=== PATIENT | male | born 1950 | race Caucasian/White ===

== ENCOUNTER → 2021-07-04 13:57 | Outpatient (CLI) | payer MEDICARE, SELFPAY | PROVIDERS: PCP Family Medicine; Visit Provider Family Medicine | DX: I10 Essential (primary) hypertension (principal) ==

== ENCOUNTER → 2022-07-18 15:36 | Outpatient (CLI) | payer MEDICARE, SELFPAY ==
--- NOTE | 2022-07-18 | CA_ITS ---
FINAL REPORT TECHNIQUE: Color Doppler, duplex Doppler and compression sonography of the right lower extremity venous system was performed. CLINICAL HISTORY: HTN, HLD, DM, redness and pain x couple of days worse this morning. FINDINGS: There is no evidence of deep venous thrombosis from the level of the groin to the calf. The veins are patent and compressible. IMPRESSION: No evidence of deep venous thrombosis right lower extremity. Reviewed, Interpreted and Dictated by Moses Garcia III, MD Transcribed by Tangela Finn Authenticated and [facility]
== END ==
PROVIDERS: PCP Family Medicine; Visit Provider Family Medicine
DX: M79.604 Pain in right leg (principal)
CPT/HCPCS: 93971

== ENCOUNTER 2024-04-08 10:59 | Outpatient (CLI) | payer MEDICARE, SELFPAY ==
[2024-04-08 11:22] LABS: Basophils % 0.5 % (0.1-2.0); Eosinophils # 0.2 K/mm3 (0.0-0.4); Eosinophils % 1.9 % (0.1-12.0); Hematocrit 40.6 % (42.0-52.0); Hemoglobin 13.4 g/dL (14.1-18.0); Lymphocytes % 11.3 % (10-50); Mean Corpuscular HGB Conc 33.1 g/dL (31.8-35.4); Mean Corpuscular Hemoglobin 29.6 pg (27.0-31.2); Mean Corpuscular Volume 89.4 fl (80-94); Mean Platelet Volume 6.8 fl (7.4-10.4); Monocytes # 0.6 K/mm3 (0.1-1.0); Monocytes % 6.7 % (1.7-9.3); Neutrophils # 6.7 K/mm3 (1.8-7.8); Neutrophils % 79.7 % (37.0-80.0); Platelet Count 206 K/mm3 (142-424); Red Blood Count 4.54 M/mm3 (4.60-6.20); Red Cell Distribution Width 14.9 % (11.5-17.5); White Blood Count 8.5 K/mm3 (4.8-10.8)
== END 2024-04-08 23:59 | disposition home or self-care (01) ==
LOC: LAB 11:00
PROVIDERS: PCP Family Medicine; Visit Provider Family Medicine
DX: J06.9 Acute upper respiratory infection, unspecified (principal)
CPT/HCPCS: 85025

== ENCOUNTER 2024-09-06 13:55 | Outpatient (CLI) | payer MEDICARE, SELFPAY ==
--- NOTE | 2024-09-06 14:03 | CA_ITS ---
APPROVED REPORT EXAM: Comprehensive 2D, Doppler, and color-flow Echocardiogram Instrument Calibrator: Jannie Tucker RVT Ht: 5 ft 6 in Wt: 227lbs BSA: 2.11 BP: 138/67 mmHg Indications: HTN,DM,EDEMA VERY TDS-LIMITED WINDOWS,PT SCANNED UPRIGHT UNABLE TO LAY FLAT R/T BREATHING 2D Dimensions IVSd 1.43 cm M: 0.6-1.2 LVEF (Visual) 56.80 % PWd 0.92 cm M: 0.6 - 1.2 LA Volume 41.70 mL LVDd 3.95 cm M: 4.2 - 5.9 LA Volume Index 19.76 mL/m2 (M/F) 16-34 LVDs 2.79 cm M: 2.5 - 4.0 M-Mode Dimensions LA Diam 3.39 cm (1.9-4.0) TAPSE 2.59 (<1.7) LV Diastology E Decel Time 150 (160-240 msec) E/A Ratio 0.9 Aortic Valve MANDA Index 1.10 cm2/m2 AoV Peak Rhett. 104.0 (50-130 cm/s) AO Peak GR. 4.40 mmHg AO Mean GR. 2.60 (<5 mmHg) AO VTI 22.4 (18-25 cm) MANDA (VTI) 2.37 (2.5-4.5 cm2) Mitral Valve MV E Max Rhett. 92.0 (40-130 cm/s) MV A Velocity 105.0 (40-130 cm/s) E/A Ratio 0.88 MV PHT 44.0 ms Tricuspid Valve TR P. Velocity 181.00 cm/s RAP Estimate 10.00 mmHg RVSP 23.10 mmHg Left Ventricle The left ventricle is normal size. The left ventricular systolic function is mildly reduced. There is increased LV wall thickness. There is mild global hypokinesis present. The septum is asynchronous. Transmitral Doppler flow pattern suggests impaired LV relaxation. LVEF is 40-45%. Right Ventricle Right ventricle is mildly dilated. The right ventricular systolic function is normal. Atria The left atrium size is normal. The right atrium size is normal. There is no Doppler evidence of interatrial shunt. Aortic Valve Aortic valve is mildly thickened. Trace aortic regurgitation. There is no aortic valvular stenosis. Mitral Valve The mitral valve is normal in structure. No evidence of mitral valve stenosis. Trace mitral regurgitation. Tricuspid Valve Tricuspid valve is grossly normal in structure and function. Trace tricuspid regurgitation. There is insufficient TR jet to estimate RVSP. Pulmonic Valve The pulmonary valve is normal in structure. Trace pulmonic regurgitation. Great Vessels The aortic root is normal in size. IVC is normal in size and collapses >50% with inspiration. Pericardium There is no pericardial effusion. Other Information Study Quality: Fair Conclusion Mildly reduced LV systolic function (LVEF 40-45%). Asynchronous septum. Mild RV dilation with normal RV function. No significant valvular stenosis or regurgitation. Electronically signed by : Brea Farfan MD 09/13/2024 23:46:22
--- NOTE | 2024-09-06 14:45 | ECG_ITS ---
APPROVED REPORT Exam: Resting ECG HR:84 bpm ECG Measurements Heart Rate 84 AXES WY 149 P 23 QRSd 102 QRS 259 QT 351 T 73 QTc 392 Conclusion SINUS RHYTHM INCOMPLETE RIGHT BUNDLE BRANCH BLOCK [90+ ms QRS DURATION, TERMINAL R IN V1/V2, 40+ ms S IN I/aVL/V4/V5/V6] RIGHT VENTRICULAR HYPERTROPHY [SOME/ALL OF: PROMINENT R IN V1, LATE TRANSITION, RAD, ANIYAH, SSS] POSSIBLE ANTERIOR MYOCARDIAL INFARCTION , OF INDETERMINATE AGE [30 ms Q WAVE IN V3/V4, OR R < 0.2 mV IN V4] ABNORMAL ECG UNCONFIRMED REPORT Electronically signed by : Jose Stapleton MD 09/07/2024 21:06:38
== END 2024-09-06 23:59 | disposition home or self-care (01) ==
LOC: RT 13:59
PROVIDERS: PCP Family Medicine; Visit Provider Family Medicine
DX: I51.7 Cardiomegaly (principal); I45.10 Unspecified right bundle-branch block
CPT/HCPCS: 93005; 93306

== ENCOUNTER 2025-02-10 08:15 | Day surgery (SDC) | payer MEDICARE, SELFPAY ==
[2025-02-10] VITALS (15 sets, daily range): BP systolic 102–153; BP diastolic 57–76; PULSE 46–89; RESP 14–20; TEMP 36.8–36.9; O2SAT 90–100; BMI 38.5
--- NOTE | 2025-02-10 06:59 | IR_ITS ---
APPROVED REPORT Patient Location: Outpatient Catering Staff Member: Bryn Moctezuma, RT (R) PROCEDURES Left heart catheterization Left ventriculogram Selective coronary angiogram Drug-eluting stent deployment to the proximal mid and distal dominant right coronary Drug-eluting stent deployment to the proximal circumflex artery Drug-eluting stent deployment to the proximal LAD INDICATION Coronary artery disease, Angina pectoris, Numerous risk factors for coronary disease Informed consent was obtained prior to the procedure. COMPLICATIONS NONE Estimated Blood Loss: LESS THAN 10 ML TECHNIQUE One percent lidocaine used to anesthetize the right anterior aspect of the wrist. The right radial artery was accessed via the Seldinger technique. A 6 German sheath was placed in the right radial artery. 2.5 mg of Verapamil, 800 mcg of nitroglycerin, 1mg Lidocaine and 5000 U Heparin were given through the arterial sheath. The JL3 catheter was also used to perform left heart catheterization, left ventriculogram and selective coronary angiogram. At the end the diagnostic angiogram therapeutic Was administered giving a therapeutic ACT and the guide catheter was placed in the right coronary artery followed by Choice PT extra-support wire placed distally. A 3 mm x 38 mm [place] frontier stent was deployed at 18 abigail distally reducing severe stenoses. An additional 3.5 x 38 mm [place] frontier stent was placed proximal to the for stent yet still overlapping and deployed at 16 abigail. The balloon was advanced to half the length and then deployed at 16 abigail to post dilate. APOORVA-3 flow was present before and after the procedure. After achieving excellent angiographic results the apparatus was removed from the right coronary and placed in the left main artery followed by Choice PT extra-support wire placed down the circumflex artery. A 2.75 x 38 mm [place] frontier stent was deployed at 20 abigail reducing the stenosis. A 3.25 x 15 mm noncompliant balloon was deployed at 20 abigail in the proximal portion of post dilate. Excellent angiographic results were obtained. Following this the wire was placed into the LAD where a 3 mm x 34 mm [place] frontier stent was deployed at 18 abigail reducing the stenosis to 0%. APOORVA-3 flow was present before and after the procedure. At the end the procedure the apparatus was removed the sheath was removed and hemostasis was achieved using TR banding patient was transferred to the postop porting in stable condition ANGIOGRAPHIC RESULTS The left main artery Normal The left anterior descending artery Has a proximal 70% concentric stenosis followed by a 60% stenosis with mid vessel concentric 50% stenosis The circumflex artery Nondominant yet still large with a proximal 70 to 80% concentric stenosis with an additional 30 to 40% stenosis and a large first obtuse marginal artery The right coronary artery Large and dominant has mid vessel 80% stenosis with a distal 70 to 80% stenosis. Proximally there is severe dampening with at least 40% proximal stenosis The VAIL ventriculogram reveals Not performed The left ventricular end-diastolic pressure Not measured IMPRESSION Severe three-vessel coronary disease as described above Successful reconstruction of the proximal mid and distal dominant right coronary severe disease reduced to 0% with 2 contiguous drug-eluting stents Successful stenting of the proximal circumflex artery severe disease reduced to 0% with 1 drug-eluting stent Successful stenting the proximal 80 severe disease reduced to 0% with 1 drug-eluting stent Persistent moderate disease as described above which is all best managed medically PLAN 1. Plavix and aspirin 2. Tighter control of diabetes 3. LDL less than 55 to be achieved with high intensity statin 4. Avoidance of tobacco products 5. Risk factor modification 6. Rehabilitation Electronically signed by : Ronnie Avila MD 02/10/2025 10:53:33
[2025-02-10 08:51] LABS: Hematocrit 45.1 % (42.0-52.0); Hemoglobin 14.6 g/dL (14.1-18.0); Immature Granulocytes % 0.5 %; Mean Corpuscular HGB Conc 32.4 g/dL (31.8-35.4); Mean Corpuscular Hemoglobin 28.1 pg (27.0-31.2); Mean Corpuscular Volume 86.7 fl (80-94); Nucleated Red Blood Cells % 0 %; Platelet Count 184 K/mm3 (142-424); Red Blood Count 5.20 M/mm3 (4.60-6.20); Red Cell Distribution Width-SD 46.5 fL; White Blood Count 8.3 K/mm3 (4.8-10.8)
[2025-02-10 09:13] LABS: Chloride 98 mmol/L (98-107)
[2025-02-10 09:14] LABS: Potassium 4.1 mmoL/L (3.5-5.1); Sodium 138 mmol/L (136-145)
[2025-02-10 09:17] LABS: Anion Gap 11.1 mEq/L (5-15); Blood Urea Nitrogen 26 mg/dl (9-20); Calcium 9.7 mg/dl (8.4-10.2); Carbon Dioxide 33 mmol/L (22.0-30.0); Creatinine Clearance Estimated 102 mL/min (50-200); Creatinine,Serum 0.90 mg/dl (0.66-1.25); Estimated Glomerular Filt Rate 83 ml/min (>60); GFR (African American) 100 ML/MIN (>60); Glucose 174 mg/dl (74-100)
[2025-02-10] MEDS: VERAPAMIL 2.5MG/ML 2ML VIAL 2.5 MG IV (09:57)
[2025-02-10] MEDS: NITROGLYCERIN 800MCG/8ML SYR (CATH LAB) 800 MCG IA (09:57)
[2025-02-10] MEDS: LIDOCAINE 1% 10ML MDV 10 ML IJ (09:57)
[2025-02-10] MEDS: HEPARIN 1,000 UNITS/ML 10ML VIAL (CATH LAB) 5000 UNIT IV (09:57)
[2025-02-10] MEDS: 0.9 % SODIUM CHLORIDE 500 ML 25 ML IV (09:57)
[2025-02-10] MEDS: HEPARIN 1,000 UNITS/500ML NS (CATH LAB) 3000 UNIT IV (09:58)
[2025-02-10] MEDS: MIDAZOLAM HCL 1MG/ML 5ML VIAL 1 MG IV (10:00)
[2025-02-10] MEDS: FENTANYL 100MCG/2ML VIAL 50 MCG IV (10:00)
--- NOTE | 2025-02-10 11:51 | SUR.PHASEII ---
Pt sitting up eating lunch tray provided. No further needs voiced. Call rell w/in reach.
[2025-02-10] MEDS: IOPAMIDOL-370 (76%);100ML BOTTLE 160 ML IV (12:14)
[2025-02-10 12:22] LABS: CATHL Activated Clotting Time > 400 SEC (74-125)
== END 2025-02-10 14:06 | disposition home or self-care (01) ==
PROVIDERS: PCP Family Medicine; Visit Provider Internal Medicine
PROC: 4A023N7 Measurement of Cardiac Sampling and Pressure, Left Heart, Percutaneous Approach (ICD-10-PCS; CPT 93452; principal; 2025-02-10 07:45)
DX: I25.119 Atherosclerotic heart disease of native coronary artery with unspecified angina pectoris (principal); R94.31 Abnormal electrocardiogram [ECG] [EKG]; I50.20 Unspecified systolic (congestive) heart failure; I11.0 Hypertensive heart disease with heart failure; E11.9 Type 2 diabetes mellitus without complications; R06.09 Other forms of dyspnea; R60.0 Localized edema; E78.2 Mixed hyperlipidemia; Z87.891 Personal history of nicotine dependence; Z95.5 Presence of coronary angioplasty implant and graft; Z79.84 Long term (current) use of oral hypoglycemic drugs; Z79.02 Long term (current) use of antithrombotics/antiplatelets; Z79.82 Long term (current) use of aspirin; Z79.4 Long term (current) use of insulin; Z79.899 Other long term (current) drug therapy
CPT/HCPCS: 80048; 85025; 85347; 92928; 93458; 99152; 99153; C1725; C1769; C1874; C9600; J1200; J1644; J3010; J7040; Q9967

== ENCOUNTER 2025-02-12 09:20 | Outpatient (CLI) | payer MEDICARE, SELFPAY ==
--- OUTSIDE RECORDS SUMMARY | 2024-03-26 05:45 | XMS_ITS ---
Author Organization [facility] Address [address] [facility] [address] [place] [phone] Care Team Providers Care Operating Engineer Apprentice Name Role Phone Jorge LuisMishelory Primary Care Provider Allergies No Known Allergies Results Component Value Reference Range Notes Glycohemoglobin A1c (in hous e) Reviewed date:03/29/2024 09:44:01 AM Interpretation:7.0% Performing Lab: Notes/Report: 7.0% glycohemoglobin 7.0% 5 - 6.5 % P-Comprehensive Metabolic Pa mau (CMP) Reviewed date:03/30/2024 04:18:16 PM Interpretation:gluc 161 Performing Lab: Notes/Report: Test performed by [facility] [address] [place] [address] , [address], [place] [address] Salinas Aguila MD, Continuous Improvement Engineer CLIA: [id number] Sodium 142 135-145 mmol/L Potassium 4.9 3.5-5.3 [...] Interpretation:Normal Performing Lab: Notes/Report: Test performed by [employer] [address] [facility] [address], [place] [address] Salinas Aguila MD, Continuous Improvement Engineer CLIA: [id number] Cholesterol 109 <200 mg/dL Triglycerides 134 <150 [...] Interpretation:4.78 Performing Lab: Notes/Report: Test performed by YouTube [address] [facility] [address], [place] [address] Salinas Aguila MD, Continuous Improvement Engineer CLIA: [id number] PSA 4.78 <4.00 ng/mL Please note this [...] Date Status Efudex 5 % 1 application Apigee Developer ally once daily 12/22/2023 Active Furosemide 40 [...] older) IM Intramuscular 03/26/2024 Pending Vital Signs Blood pressure systolic 130 mm Hg 03/26/20 24 Blood pressure diastolic 80 mm Hg 024 Heart Rate 81 /min 03/26/2024 Height 65 in in 03/26/2024 Weight 235.2 lbs 03/26/2024 BMI 39.14 kg/m2 03/26/2024 Encounters Encounter Location Date Provider Diagnosis [facility] [address] [facility] 36 [facility] [address] [place] [id number] 03/26/2024 Mishel Kang Essential hypertensi on I10 [...] Up: 5M, Reason: Provider Name:Mishel Reyes er, 05/13/2025 10:00:00 AM, [address] [facility] 36 [facility], [address], [place], [phone], Procedure Notes * Category Sub-Category Detail Notes Cryotherapy Actinic Keratosis Number of lesions treated: 2 lesions, one of the right ear and one of the arm Method: Bobbi LL-100 used to freeze and refreeze the lesions, The patient tolerated the procedure well. Post Op instruction: Wash with vinegar w ater twice a day, Apply Vaseline twice a day Progress Notes * COLLEEN VILLAGOMEZDOB:[birth year] (74 yo M)Acc No.[id number]:03/26/2024 Progress Notes Patient: COLLEEN BRADEN Provider: Mishel Kang M.D. :1950 A ge:73 Y S ex:Male Date:03/26/2024 Address:[place] [address] [place], [place] [phone] Subjective: * Chief Complaints: * 1 . [...] ERMATOLOGY: no R mena. n o H tahd. G ASTROENTEROLOGY: no N ausea. n o V omiting. n o D iarrhea.? U ROLOGY: no D ifficulty urinating. n o B lood in urine. * Medical History: T ype 2 Diabetes, Hypertension, Benign Prostatic Hyperplasia, Hyperlipidemia. * Surgical History: T onsillectomy , Right irridectomy, Dr. Leon, [facility] 01/02/2024. * Family History: F ather: [...] * Procedure Codes: 9 [address] [place], [address] CAPILLARY BLOOD DRAW, 18[address] GLYCATED HEMOGLOBIN TEST, Modifiers: QW * Follow Up: 5 M * Images: Billing Information: * Visit Code: 14916 Office Visit, Est Pt., Level 4. * Procedure Codes: [address] [place]. [address] CAPILLARY BLOOD DRAW. [address] GLYCATED HEMOGLOBIN TEST. Modifiers: QW * Electronic signature of Mishel Kang MD on 02/12/2025 at 09:24 AM EDT Sign off status: Pending * Provider: Mishel Kang M.D. Date: Generated for Bernardi edd/Sonja/eTransmitting on: 0 02/12/2025 09:24 AM EDT History and Physical Notes * HPI (History [...]
--- OUTSIDE RECORDS SUMMARY | 2024-04-08 06:15 | XMS_ITS ---
Author Organization [facility] Address [address] [facility] 36 [facility] [address] [place] [phone] Care Team Providers Care Outside Operator Name Role Phone Jorge LuisMishelory Primary Care Provider Joel Hopkins Unavailable [phone] Allergies No Known Allergies Results Component Value [...] day Active Efudex 5 % 1 application Technical Publications Writer ally once daily 12/22/2023 Active Glimepiride 4 [...] Twice a day 12/22/2023 Active Vital Signs Blood pressure systolic 130 mm Hg 04/08/20 24 Blood pressure diastolic 78 mm Hg 024 Heart Rate 111 /min 04/08/2024 Height 65 in in 04/08/2024 Weight 236.6 lbs 04/08/2024 BMI 39.37 kg/m2 04/08/2024 Encounters Encounter Location Date Provider Diagnosis [facility] [address] [place] [phone] 04/08/2024 Joel Hopkins Acute URI J06.9 Assessments [...] Up: prn, Reason: Provider Name:Mishel Reyes er, 05/13/2025 10:00:00 AM, [address], [address], [place], [place], [phone], Progress Notes * COLLEEN VILLAGOMEZDOB:[birth year] (74 yo M)Acc No.[id number]:04/08/2024 Progress Notes Patient: COLLEEN BRADEN Provider: Aleena Hopkins M.D. :1950 A ge:73 Y S ex:Male Date:04/08/2024 [address] Pcp:Mishel Kang Subjective: * Chief Complaints: * [...] T onsillectomy , Right Irridectomy, Dr. Leon, [facility] 01/02/2024. * Hospitalization/Major Diagno stic Procedure: D [...] * Images: Billing Information: * Visit Code: 65501 Office Visit, Est Pt., Level 3. * Procedure Codes: G2211 Complex e/m visit add on. * Electronic signature of Suyapa Hopkins MD on 02/12/2025 at 09:23 AM EDT Sign off status: Pending * Provider: Aleena Hopkins M.D. Date: Generated for Percy puga/Sonja/Yuliya on: 0 02/12/2025 09:23 AM EDT History and Physical Notes * [...]
--- OUTSIDE RECORDS SUMMARY | 2024-08-27 06:00 | XMS_ITS ---
Author Organization [facility] Address [address] [facility] [address] [place] [id number] Care Team Providers Care Windows Application Developer Name Role Phone Jorge LuisMishelory Primary Care Provider [phone] Allergies No Known Allergies Results Component Value Reference Range Notes Glycohemoglobin A1c (in hous e) Reviewed date:08/31/2024 04:22:58 PM Interpretation:8.7% Performing Lab: Notes/Report: 8.7% glycohemoglobin 8.7% 5 - 6.5 % P-Comprehensive Metabolic Pa mau (CMP) Reviewed date:08/31/2024 04:22:58 PM Interpretation:gluc 202 Performing Lab: Notes/Report: Test performed by [facility], [place] [address] [place] [address] , [address], [place] [address] Salinas Aguila MD, [employer] CLIA: [id number] Sodium 139 135-145 mmol/L Potassium 4.7 3.5-5.3 [...] 12/22/2023 Active Efudex 5 % 1 application Size Tester ally once daily 12/22/2023 Active Glimepiride 4 [...] day; Duration: 30 days Active Vital Signs Blood pressure systolic 120 mm Hg 08/28/19 25 Blood pressure diastolic 74 mm Hg 025 Heart Rate 91 /min 08/27/2024 Height 65 in in 08/27/2024 Weight 244.2 lbs 08/27/2024 BMI 40.63 kg/m2 08/27/2024 Encounters Encounter Location Date Provider Diagnosis [facility] [address] [facility] [address] [facility] [address] [place], [place] [id number] 08/27/2024 Mishel Kang Type 2 diabetes mellitus without complications E11.9 ; roasterman (current) use of insulin Z79.4 ; Localized edema R60.0 ; Venous stasis dermatitis of right lower extremity I87.2 ; Essential hypertension I10 and Actinic keratosis L57.0 Assessments Encounter Date Diagnosis (ICD Code) Assessment Notes Treatment Notes Treatment Clinical Notes Section Notes 08/27/2024 Type 2 diabetes mellitus without complications (ICD-10 - E11.9) 08/27/2024 roasterman (current) use of insulin (ICD-10 - Z79.4) 08/27/2024 Localized edema (ICD-10 - R60.0) 08/27/2024 Venous stasis dermatitis of right lower extremity (ICD-10 - I87.2) 08/27/2024 Essential hypertension (ICD-10 - I10) 08/27/2024 Actinic keratosis (ICD-10 - L57.0) Plan Of Treatment Next Appt Details Follow Up: 3 Months, Reason: Provider Name:Mishel Reyes er, 05/13/2025 10:00:00 AM, [address] [facility] [address] [facility], [address], [place], [place], [id number], Procedure Notes * Category Sub-Category Detail Notes Cryotherapy Actinic Keratosis Number of lesions treated: 6 Method: Bobbi LL-100 used to freeze and refreeze the lesions Post Op instruction: Wash with vinegar w ater twice a day , Apply Vaseline twice a day Procedure-other dressing changed Soft-Roll , Cob an wrap of the right leg Progress Notes * COLLEEN VILLAGOMEZDOB:[birth year] (74 yo M)Acc No.[id number]:08/27/2024 Progress Notes Patient: COLLEEN BRADEN Provider: Mishel Kang M.D. :1950 A ge:74 Y S ex:Male Date:08/27/2024 Address:[address], [facility] Subjective: * Chief Complaints: * 1 . [...] onsillectomy , Right Irridectomy, Dr. Leon, [facility] 01/02/2024. [...] AM > no auth required; CPT code 76837; [facility] 09/27/2024 04:14:02 PM > see TE 3.?Venous stasis dermatitis of right lower extremity?Imaging: Echocardiogram (Performed Date - 09/06/2024)* Jud Rodgers 08/27/2024 11:17 :20 AM > no auth required; CPT code 62239; [facility] 09/27/2024 04:14:02 PM > see TE [...] AM > no auth required; CPT code 81479; faxed to [facility] ElsieSonia Davidson 09/27/2024 04:14:02 PM > see TE ?Imaging: EKG (Performed Date - 09/06/2024)* Jud Rodgers 08/27/2024 11:14 :23 AM > faxed to [facility] Outpatient EvieSonia Davidson 09/08/2024 04:44:17 PM [...] 7000 DESTRUCTION BENIGN LESION, CRYOSURGERY,ELECTROSURGERY FIRST LESION, 75966 DESTRUCTION BENIGN LESION,CRYO, ELECTRO, 2-14 LESIONS, G2211 Complex e/[place], [address] CAPILLARY BLOOD DRAW, 00525 GLYCATED HEMOGLOBIN TEST, Modifiers: QW , G8752 MOST RECENT SYSTOLIC BP < 140MM HG, G8754 MOST RECENT DIASTOLIC BP < 90MM HG, 3052F HG A1C>EQUAL 8.0%<EQUAL 9.0% * Follow Up: 3 Months * Images: Billing Information: * Visit Code: 45524 Office Visit, Est Pt., Level 3. Modifiers: 25 * Procedure Codes: 14659 DESTRUCTION BENIGN LESION, CRYOSURGERY,ELECTROSURGERY FIRST LESION. 08912 DESTRUCTION BENIGN LESION,CRYO, ELECTRO, 2-14 LESIONS. G2211 Complex e/[place]. [address] CAPILLARY BLOOD DRAW. 34736 GLYCATED HEMOGLOBIN TEST. Modifiers: QW G8752 MOST RECENT SYSTOLIC BP < 140MM HG. G8754 MOST RECENT DIASTOLIC BP < 90MM HG. 3052F HG A1C>EQUAL 8.0%<EQUAL 9.0%. * Electronic signature of Mishel Kang MD on 02/12/2025 at 09:23 AM EDT Sign off status: Pending * Provider: Mishel Kang M.D. Date: 0 08/27/2024 Generated for Percy puga/Sonja/eTransmitting on: 0 02/12/2025 09:23 AM EDT History [...]
--- OUTSIDE RECORDS SUMMARY | 2024-12-03 06:00 | XMS_ITS ---
Author Organization [facility] Address [address] [facility] [address] [place] [phone] Care Team Providers Care Plant Tour Guide Name Role Phone Mishel Kang Primary Care Provider Allergies No Known Allergies Results Component Value Reference Range Notes P-Basic Metabolic Panel (BMP ) Reviewed date:01/07/2025 12:37:14 PM Interpretation:Chlor 96, CO2 33, Glu 165 Performing Lab: Notes/Report: Test performed by [facility] [address] [place], [place] [address] [place] , [place] [address] Salinas Aguila MD, Purchasing Engineer CLIA: [id number] Sodium 138 135-145 mmol/L Potassium 5.0 3.5-5.3 mmol/L Chloride 96 97-108 mmol/L CO2 33 22-32 mmol/L Glucose 165 65-99 mg/dL BUN 16 8-23 mg/dL Creatinine 0.82 0.70-1.30 mg/dL Calcium 9.3 8.6-10.4 mg/dL eGFR by Creatinine 93 >59 mL/min/1.73m2 P-Hemoglobin A1C Reviewed date:01/07/2025 12:37:14 PM Interpretation:8.3 Performing Lab: Notes/Report: Test performed by [facility] [address] [place], [place] [address] , [address], [place] [address] Salinas Aguila MD, Purchasing Engineer CLIA: [id number] Hemoglobin A1C 8.3 <5.7 % The following HbA1c ranges recommended by the [place] [employer] (ADA) may be used as an aid in the diagnosis of diabetes mellitus. HbA1c Suggested Diagnosis >=6.5% Diabetic 5.7% - 6.4% Pre-Diabetic <5.7% Non-Diabetic Estimated Average Glucose Reviewed date:01/07/2025 12:37:14 PM Interpretation:192 Performing Lab: Notes/Report: Test performed by [employer] [place] [facility] [facility] [address] [facility] , [address], [place] [address] Salinas Aguila MD, Purchasing Engineer CLIA: [id number] Estimated Average Glucose (eAG) 192 Estimated Average [...] W/U Status Risk Notes Problem Ischemic cardiomyopathy (983521839) Ischemic cardiomyopathy (I25.5) Active confirmed Problem Type 2 diabetes mellitus with other specified complication, unspecified whether longterm insulin use (E11.69) Active confirmed Problem Body mass index 40+ - morbidly obese (937142244) BMI 40.0-44.9, adult (Z68.41) Active confirmed Problem Hypertensive heart failure (73578623) Hypertensive heart disease with heart failure (I11.0) Active confirmed Problem Heart failure (18935298) Heart failure, unspecified HF chronicity, unspecified heart failure type (I50.9) Active confirmed Vital Signs Blood pressure systolic 140 mm Hg 12/04/19 25 Blood pressure diastolic 80 mm Hg 025 Heart Rate 86 /min 12/03/2024 Height 65 in in 12/03/2024 Weight 240.0 lbs 12/03/2024 BMI 39.93 kg/m2 12/03/2024 Encounters Encounter Location Date Provider Diagnosis [facility] [address], [place] [phone] 12/03/2024 Mishel Kang Type 2 diabetes heriberto itus without complications E11.9 ; Ischemic cardiomyopathy I25.5 ; Localized edema R60.0 ; Mixed hyperlipidemia E78.2 ; Type 2 diabetes mellitus with other specified complication, unspecified whether certified registered locksmith insulin use E11.69 ; BMI 40.0-44.9, adult [...] mellitus with other specified complication, unspecified whether longterm insulin use (ICD-10 - E11.69) 12/03/2024 BMI [...] 2 Months, Reason: Provider Name:Mishel Reyes er, 05/13/2025 10:00:00 AM, [address], [address], [place], [place], [phone], Progress Notes * COLLEEN VILLAGOMEZDOB:[birth year] (74 yo M)Acc No.[id number]:12/03/2024 Progress Notes Patient: COLLEEN BRADEN Provider: Mishel Kang M.D. :1950 A ge:74 Y S ex:Male Date:12/03/2024 [address] Subjective: * Chief Complaints: * 1 . [...] History: [facility] * Family History: F ather: , [...] mellitus with other specified complication, unspecified whether certified registered locksmith insulin use - E11.69 6 . B [place] 40.0-44.9, adult - Z68.41 7 . H [...] stimated Average Glucose 192 - mg/dL * [facility], IT support 12/04/2024 10:45:06 : This order [...] * Images: Billing Information: * Visit Code: 38916 Office Visit, Est Pt., Level 4. * [...] 0 12/03/2024 Generated for Printi ng/Faxing/eTransmitting on: 0 02/12/2025 09:23 AM EDT History [...]
--- OUTSIDE RECORDS SUMMARY | 2025-02-07 06:30 | XMS_ITS ---
Author Organization [facility] Address [address] [facility] [address] [facility] [address] [place] [id number] Care Team Providers Care Alpine Patroller Name Role Phone Mishel Kang Primary Care [...] 2 times a day Active Vital Signs Blood pressure systolic 126 mm Hg 02/08/20 25 Blood pressure diastolic 78 mm Hg 025 Heart Rate 87 /min 02/07/2025 Height 65 in in 02/07/2025 Weight 239.6 lbs 02/07/2025 BMI 39.87 kg/m2 02/07/2025 Encounters Encounter Location Date Provider Diagnosis [facility] [address] [facility] [address] [facility] [address] [place] [id number] 02/07/2025 Mishel Kang Localized edema R60. 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 02/07/2025 Type 2 diabetes mellitus with other specified complication, unspecified whether conference planning manager insulin use (ICD-10 - E11.69) 02/07/2025 halfway (current) use of insulin (ICD-10 - Z79.4) [...] Reyes er, 05/13/2025 10:00:00 AM, [address] [facility], [address], [place], [place], [id number], Progress Notes * COLLEEN VILLAGOMEZDOB:[birth year] (74 yo M)Acc No.[id number]:02/07/2025 Progress Notes Patient: COLLEEN BRADEN Provider: Mishel Kang M.D. :1950 A ge:74 Y S ex:Male Date:02/07/2025 Address:[place] [id number] Subjective: * Chief Complaints: * 1 . [...] T onsillectomy , Right Irridectomy, Dr. Leon, [facility] eye 01/02/2024. * Family History: F [...] mellitus with other specified complication, unspecified whether jail insulin use - E11.69 (Primary) 2 . L ocalized edema - R60.0 3 .?halfway (current) use of insulin - Z79.4 4 . H eart failure, unspecified HF chronicity, unspecified heart failure type - I50.9 Plan: * Treatment: Value Reference Range g lycohemoglobin 8.3% 5 - 6.5 % * Annia Tian 02/07/2025 11:3 0:14 AM EDT > Provider reviewed results while patient in office. 2.?Localized edema? Notes: Extra dose of Furosemide recommended for today.?? * Procedure Codes: 3 6416 CAPILLARY BLOOD DRAW, 83084 GLYCATED HEMOGLOBIN TEST, Modifiers: QW * Follow Up: 2 Months * Images: Billing Information: * Visit Code: 97090 Office Visit, Est Pt., Level 4. * Procedure Codes: 50765 CAPILLARY BLOOD DRAW. 63053 GLYCATED HEMOGLOBIN TEST. Modifiers: QW * Electronic signature of Mishel Kang MD on 02/12/2025 at 09:24 AM EDT Sign off status: Pending * Provider: Mishel Kang M.D. Date: 0 02/07/2025 Generated for Bernardi edd/Sonja/eTransmitting on: 0 02/12/2025 [...]
--- OUTSIDE RECORDS SUMMARY | 2025-02-12 09:23 | XMS_ITS | Clinical Summary ---
Author Organization Healthcare Address [address] [place] [address] Care Team Providers Care Reception Name Role Phone Brandon Lee MD Primary Care Provider [phone] Family History Medical History Relation Name Comments Other cancer Other Relation Name Status Comments Other Social History Tobacco Use Types Packs/Day Years Used Date Smoking Tobacco: Former Alcohol Use Standard Drinks/Week Comments Yes 0 (1 standard drink = 0.6 oz pure alcohol) Alcoholic Drinks/day: Minimum alcohol consumption Sex and Gender Information Value Date Recorded Sex Assigned at Not on file Legal Sex Male 6:55 PM EDT Gender Identity Not on file Sexual Orientation Not on file Last Filed Vital Signs Vital Sign Reading Time Taken Comments Blood Pressure 106/70 01/12/2018 9:50 AM EDT Pulse 98 01/12/2018 9:50 AM EDT Temperature - - Respiratory Rate 16 01/12/2018 9:50 AM EDT Oxygen Saturation - - Inhaled Oxygen Concentration - - Weight 110 kg (242 lb 1 oz) 01/12/2018 9:50 AM E DT Height 167.6 cm (5' 6 ) 01/12/2018 9:50 AM EDT Body Mass Index 39.07 01/12/2018 9:50 AM EDT Plan of Treatment Health Maintenance Due Date Last Done Comments [facility]-Depression Screening 1950 [facility]-Hepatitis C Screening 1950 [facility]-Medicare Annual Wellness (AWV) 1950 [facility]-/Child/Adol SDOH Screenings 1950 [facility]- SDOH Screenings 1970 [facility]-Adult SDOH Screenings 1970 [facility]-DTaP,Tdap,and Td Vaccine s (1 - Tdap) 1971 CT Colonography 1997 Colonoscopy 1997 FIT-DNA 1997 FIT 1997 FOBT 1997 Sigmoidoscopy 1997 [facility]-Colorectal Cancer Screening 1997 [facility]-Pneumococcal Vaccine: 50 + Years (1 of 1 - PCV) 2002 [facility]-Zoster Vaccines (1 of 2) 2002 NAK-[id number] Vaccine (1 - 20 24-25 season) 2024 [facility]-Influenza Vaccine (#1) 2025 [facility]-RSV Vaccine: 60+ Years o r (1 - 1-dose 75+ series) 2027 HPV Vaccines Aged Out No longer eligi ble based on patient's age to complete this topic [facility]-HIB Vaccines Aged Out No longer e ligible based on patient's age to complete this topic [facility]-Hepatitis A Vaccines Aged Out No longer eligible based on patient's age to complete this topic [facility]-IPV Vaccines Aged Out No longer e ligible based on patient's age to complete this topic [facility]-Rotavirus Vaccines Aged Out No lo nger eligible based on patient's age to complete this topic Insurance [employer]IC[employer] Care Teams Reception Relationship Specialty Start Date End Date Brandon Lee MD [address] [place] [address] PCP - General 10/27/20
--- OUTSIDE RECORDS SUMMARY | 2025-02-12 09:24 | XMS_ITS | Patient Health Record ---
Author Organization [facility] Address [address] [facility] [address] [place] [id number] Care Team Providers Care Carton Liner Name Role Phone Mishel Kang Primary Care Provider Joel Hopkins Unavailable [phone] Allergies No Known Allergies Results Component Value [...] 0.2 0.0-0.4 K/mm3 BA# 0.0 0-0.2 K/mm3 Glycohemoglobin A1c (in hous e) Reviewed date:08/31/2024 04:22:58 PM Interpretation:8.7% Performing Lab: Notes/Report: 8.7% glycohemoglobin 8.7% 5 - 6.5 % P-Comprehensive Metabolic Pa mau (CMP) Reviewed date:08/31/2024 04:22:58 PM Interpretation:gluc 202 Performing Lab: Notes/Report: Test performed by [facility] [address] [place] [address] , [address], [place] [address] Salinas Aguila MD, Honest John [employer]ocket Crew Member CLIA: [id number] Sodium 139 135-145 mmol/L Potassium 4.7 3.5-5.3 [...] date:09/08/2024 04:45:51 PM Interpretation: Performing Lab: Notes/Report: P-Basic Metabolic Panel (BMP ) Reviewed date:01/07/2025 12:37:14 PM Interpretation:Chlor 96, CO2 33, Glu 165 Performing Lab: Notes/Report: Test performed by [facility] [address] [place] [address] , [address], [place] [address] Salinas Aguila MD, Honest John [employer] Member CLIA: [id number] Sodium 138 135-145 mmol/L Potassium 5.0 3.5-5.3 mmol/L Chloride 96 97-108 mmol/L CO2 33 22-32 mmol/L Glucose 165 65-99 mg/dL BUN 16 8-23 mg/dL Creatinine 0.82 0.70-1.30 mg/dL Calcium 9.3 8.6-10.4 mg/dL eGFR by Creatinine 93 >59 mL/min/1.73m2 P-Hemoglobin A1C Reviewed date:01/07/2025 12:37:14 PM Interpretation:8.3 Performing Lab: Notes/Report: Test performed by [facility] [address] [place], [place] [address] [address], [place] [address] Salinas Aguila MD, Honest John [employer] Member CLIA: [id number] Hemoglobin A1C 8.3 <5.7 % The following HbA1c ranges recommended by the [place] [employer] (ADA) may be used as an aid in the diagnosis of diabetes mellitus. HbA1c Suggested Diagnosis >=6.5% Diabetic 5.7% - 6.4% Pre-Diabetic <5.7% Non-Diabetic Estimated Average Glucose Reviewed date:01/07/2025 12:37:14 PM Interpretation:192 Performing Lab: Notes/Report: Test performed by [facility] [address] [place] [address] [address], [place] [address] Salinas Aguila MD, Honest John [employer] Member CLIA: [id number] Estimated Average Glucose (eAG) 192 Estimated Average Glucose (eAG) is calculated using the equation eAG = (28.7 x HbA1c) - 46.7 based on the guidelines established by the ADA. If the patient has certain diseases including kidney disease, sickle cell anemia, thalassemia, or is taking medications such as dapsone, erythropoietin, or iron, eAG should not be evaluated. Glycohemoglobin A1c (in hous e) Reviewed date:02/10/2025 09:05:26 AM Interpretation:8.3% Performing Lab: Notes/Report: 8.3% glycohemoglobin 8.3% 5 - 6.5 % Glycohemoglobin A1c (in hous e) Reviewed date:03/29/2024 09:44:01 AM Interpretation:7.0% Performing Lab: Notes/Report: 7.0% glycohemoglobin 7.0% 5 - 6.5 % P-Comprehensive Metabolic Pa mau (CMP) Reviewed date:03/30/2024 04:18:16 PM Interpretation:gluc 161 Performing Lab: Notes/Report: Test performed by [facility] [address] [place] [address], [place] [address] Salinas Aguila MD, Honest John [employer] Member CLIA: [id number] Sodium 142 135-145 mmol/L Potassium 4.9 3.5-5.3 [...] Interpretation:Normal Performing Lab: Notes/Report: Test performed by [facility], [address] , [address], [place] [address] Salinas Aguila MD, Honest John [employer] Member CLIA: [id number] Cholesterol 109 <200 mg/dL Triglycerides 134 <150 [...] Interpretation:4.78 Performing Lab: Notes/Report: Test performed by [facility], [address] , [address], [place] [address] Salinas Aguila MD, Honest John [employer] Member CLIA: [id number] PSA 4.78 <4.00 ng/mL Please note this is an ultrasensitive PSA assay with a lower limit of detection of 0.014 ng/mL. This test is performed by the Moi ECLIA methodology. Values obtained with different assay methods or kits cannot be directly compared. Reason For Referral Diagnosis 1 Abnormal EKG (R94.31 ) Referral Organization [facility] Referring Provider First Name Mishel YapJono Referring Provider Last Name Jorge Luis Referring Provider Speciality [facility] Referred Provider Specialty Cardiovascul ar Disease General Notes Jud Rodgers 2024 08:46:32 AM > faxed to [facility] CardiologyAna Maria Brynn 09/17/2024 03:07:05 PM > 09/28/2024 at 09:15am Referral Priority Routine Medications Medication SIG (Take, Route, Frequency, Duration) Notes Start Date End Date Status Glimepiride 4 mg 1 tablet orally once a day; Duration: 30 days Active Soliqua 100-33 UNT-MCG/ML 28 units Subcu taneous daily 02/07/2025 Active Multivitamin 3 TIMES A WEEK No t-Taking Albuterol Sulfate HFA 108 (90 Base) MCG/ACT use 2 inhalations four times daily as needed; Duration: 17 Active Efudex 5 % 1 application Externally once daily 12/22/2023 Active Tamsulosin HCl 0.4 mg 1 tablet orally on ce a day; Duration: 30 days Active Triamcinolone Acetonide 0.1 % 1 application Externally Twice a day 12/22/2023 Active Furosemide 40 MG 1 tab(s) orally once a day; Duration: 30 Active Simvastatin 20 mg 1 tablet at bedtime orally once a day; Duration: 30 days Active Carvedilol 3.125 MG 1 tab(s) orally 2 ti mes a day; Duration: 30 days Active metFORMIN HCl ER 500 mg 2 tablets orally twice a day; Duration: 30 days Active PreserVision AREDS 2 - as directed Orall y twice a day Active traZODone HCl 50 mg 1 tablet orally once a day; Duration: 30 days Active Herminia Allergy 60 MG 1 tab(s) orally 2 times a day Active Lisinopril-hydroCHLOROthi azide 10-12.5 MG 1 tablet Orally Once a day; Duration: 30 days Active BD Pen Needle Candida Ultrafine 32G X 4 MM USE DIRECTED. 30; Duration: 30 Active Spironolactone 25 mg 1 tablet orally onc e a day; Duration: 30 days Active Immunizations Vaccine Route Administration Date Status Comme nts Prevnar (PCV20) IM Intramuscular 05/20/2022 Administered Fluzone High Dose (65yr and older) IM Intramuscular 05/22/2022 Administered Fluzone High Dose (65yr and older) IM Intramuscular 02/27/2023 Administered Fluzone High Dose (65yr and older) IM Intramuscular 03/26/2024 Pending Problems Problem Type SNOMED Code ICD Code Onset Dates Problem Status W/U Status Risk Notes Problem Type II diabetes mellitus without complication (887376964) Type 2 diabetes mellitus without complications (E11.9) Active confirmed Problem Essential hypertension (38458871) Essential hypertension (I10) Active confirmed Problem Actinic keratosis (377252) Actinic keratosis (L57.0) Active confirmed Problem Localized edema (3016860) Localized edema (R60.0) Active confirmed Problem Mixed hyperlipidemia (119837322) Mixed hyperlipidemia (E78.2) Active confirmed Problem Primary insomnia (8221113) Primary insomnia (F51.01) Active confirmed Problem Hypertensive heart failure (92837819) Hypertensive heart disease with heart failure (I11.0) Active confirmed Problem Ischemic cardiomyopathy (586776876) Ischemic cardiomyopathy (I25.5) Active confirmed Problem Must strain to pass urine (627414739) Straining to void (R39.16) Active confirmed Problem Long-term current use of insulin (382446792) long term care administrator (current) use of insulin (Z79.4) Active confirmed Problem Body mass index 40+ - morbidly obese (881806032) BMI 40.0-44.9, adult (Z68.41) Active confirmed Problem Lower urinary tract symptoms due to benign prostatic hypertrophy (88652991259063) Benign prostatic hyperplasia with lower urinary tract symptoms (N40.1) Active confirmed Problem Peripheral venous insufficiency (68909840) Venous stasis dermatitis of right lower extremity (I87.2) Active confirmed Problem Heart failure (20502048) Heart failure, unspecified HF chronicity, unspecified heart failure type (I50.9) Active confirmed Problem Type 2 diabetes mellitus with other specified complication, unspecified whether mcfp insulin use (E11.69) Active confirmed Problem 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1 ; Mixed hyperlipidemia E78.2 ; Actinic keratoses L57.0 ; Type 2 diabetes mellitus without complications E11.9 and Encounter for immunization Z23 [facility] [address] [facility] [address] [place], [place] [id number] 04/08/2024 Joel Hopkins Acute URI J06.9 [facility] [address] [place], [place] [id number] 08/27/2024 Mishel Kang Type 2 diabetes heriberto itus without complications E11.9 ; senior living (current) use of insulin Z79.4 ; Localized edema R60.0 ; Venous stasis dermatitis of right lower extremity I87.2 ; Essential hypertension I10 and Actinic keratosis L57.0 [facility] [address] [facility] [address] [place], [place] [id number] 12/03/2024 Mishel Kang Type 2 diabetes heriberto itus without complications E11.9 ; Ischemic cardiomyopathy I25.5 ; Localized edema R60.0 ; Mixed hyperlipidemia E78.2 ; Type 2 diabetes mellitus with other specified complication, unspecified whether mcfp insulin use E11.69 ; BMI 40.0-44.9, adult Z68.41 ; Hypertensive heart disease with heart failure I11.0 and Heart failure, unspecified HF chronicity, unspecified heart failure type I50.9 [facility] [address] [facility] [address] [place], [place] [id number] 02/07/2025 Mishel Kang Localized edema R60. 0 ; Type 2 diabetes mellitus with other specified complication, unspecified whether long term care pharmacist insulin use E11.69 ; senior living (current) use of insulin Z79.4 and Heart failure, unspecified HF chronicity, unspecified heart failure type I50.9 [facility] [address] [facility] [address] [place], [place] [id number] 03/30/2024 Mishel Kang [facility] [address] [facility] [address] [place], [place] [id number] 03/31/2024 Mishel Kang [facility] [address] [facility] [address] [place], [place] [id number] 04/08/2024 Joel Hopkins [facility] [address] [facility] [address] [place] [id number] 08/31/2024 Mishel Kang [facility] [address] [place], [place] [id number] 09/13/2024 Mishel Kang [facility] [address] [facility] [address] [place], [place] [id number] 09/27/2024 Mishel Kang [facility] [address] [facility] [address] [place], [place] [id number] 12/06/2024 Mishel Kang [facility] [address] [place] [id number] 01/07/2025 Mishel Kang [facility] [facility] [address] [place] [id number] 01/17/2025 Mishel Kang Assessments Encounter Date Diagnosis (ICD Code) Assessment Notes Treatment Notes Treatment Clinical Notes Section Notes 03/26/2024 Benign prostatic hyperplasia with lower urinary tract symptoms (ICD-10 - N40.1) 04/08/2024 Acute URI (ICD-10 - J06.9) 08/27/2024 Type 2 diabetes mellitus without complications (ICD-10 - E11.9) 03/26/2024 Essential hypertension (ICD-10 - I10) 12/03/2024 Type 2 diabetes mellitus without complications (ICD-10 - E11.9) 08/27/2024 senior living (current) use of insulin (ICD-10 - Z79.4) 12/03/2024 Ischemic cardiomyopathy (ICD-10 - I25.5) He needs to get the heart cath. 40-45% EF on echo 02/07/2025 Localized edema (ICD-10 - R60.0) Extra dose of Furosemide recommended for today. 02/07/2025 Type 2 diabetes mellitus with other specified complication, unspecified whether long term care pharmacist insulin use (ICD-10 - E11.69) 02/07/2025 senior living (current) use of insulin (ICD-10 - Z79.4) 12/03/2024 Localized edema (ICD-10 - R60.0) 03/26/2024 Mixed hyperlipidemia (ICD-10 - E78.2) 08/27/2024 Localized edema (ICD-10 - R60.0) 03/26/2024 Actinic keratoses (ICD-10 - L57.0) 12/03/2024 Mixed hyperlipidemia (ICD-10 - E78.2) 08/27/2024 Venous stasis dermatitis of right lower extremity (ICD-10 - I87.2) 02/07/2025 Heart failure, unspecified HF chronicity, unspecified heart failure type (ICD-10 - I50.9) 12/03/2024 Type 2 diabetes mellitus with other specified complication, unspecified whether long term care pharmacist insulin use (ICD-10 - E11.69) 08/27/2024 Essential hypertension (ICD-10 - I10) 03/26/2024 Type 2 diabetes mellitus without complications (ICD-10 - E11.9) 08/27/2024 Actinic keratosis (ICD-10 - L57.0) 03/26/2024 Encounter for immunization (ICD-10 - Z23) 12/03/2024 BMI 40.0-44.9, adult (ICD-10 - Z68.41) 12/03/2024 Hypertensive heart disease with heart failure (ICD-10 - I11.0) 12/03/2024 Heart failure, unspecified HF chronicity, unspecified heart failure type (ICD-10 - I50.9) Plan Of Treatment Next Appt Details Provider Name:Mishel Reyes , 05/13/2025 10:00:00 AM, [address] [facility], [address], [place], [place], [id number], Insurance Providers Payer Name Payer Address Payer Phone Subscriber Number Group Number Insured Name Patient Relationship to Insured Coverage Start Date Coverage End Date [employer] (MEDICAR E) [address] [address] [place] [address] [id number] COLLEEN VILLAGOMEZ Self - patient is the insured Medical (General) History Medical History History ICD Code Type 2 Diabetes Hypertension Benign Prostatic Hyperplasia Hyperlipidemia Surgical History Surgery Date(Month/Year) Tonsillectomy Right Irridectomy, Dr. Leon, [facility] 01/02/2024
[2025-02-12 10:37] LABS: Anion Gap 13.2 mEq/L (5-15); Blood Urea Nitrogen 19 mg/dl (9-20); Calcium 9.1 mg/dl (8.4-10.2); Carbon Dioxide 32 mmol/L (22.0-30.0); Chloride 93 mmol/L (98-107); Creatinine,Serum 0.90 mg/dl (0.66-1.25); Estimated Glomerular Filt Rate 83 ml/min (>60); GFR (African American) 100 ML/MIN (>60); Glucose 308 mg/dl (74-100); Potassium 4.2 mmoL/L (3.5-5.1); Sodium 134 mmol/L (136-145)
== END 2025-02-12 23:59 | disposition home or self-care (01) ==
LOC: LAB 09:21
PROVIDERS: PCP Family Medicine; Visit Provider Internal Medicine
DX: Z95.5 Presence of coronary angioplasty implant and graft (principal)
CPT/HCPCS: 36415; 80048

== ENCOUNTER 2025-05-31 09:03 | Outpatient (CLI) | payer MEDICARE, SELFPAY ==
--- OUTSIDE RECORDS SUMMARY | 2023-12-22 06:15 | XMS_ITS ---
Author Organization [facility] Address [address] [facility] [address] [place] [id number] Care Team Providers Care Arc Welder Apprentice Name Role Phone Mishel Kang Primary Care Provider [phone] Allergies No Known Allergies Results Component Value Reference Range Notes Glycohemoglobin A1c (in hous e) Reviewed date:12/22/2023 11:34:13 AM Interpretation:7.2% Performing Lab: Notes/Report: 7.2% glycohemoglobin 7.2% 5 - 6.5 % REASON FOR VISIT 3 month f/u, Needs labs with PSA & diabetic eye exam Medications Medication SIG (Take, Route, Frequency, Duration) Notes Start Date End Date Status Soliqua 100-33 UNT-MCG/ML 21 units Subcu taneous once daily; Duration: 30 day(s) 05/26/2023 Active Carvedilol 3.125 MG 1 tab(s) orally 2 ti mes a day; Duration: 30 days Active Lisinopril-hydroCHLOROthiaz laila 10-12.5 MG take 1 tab(s) orally once a day for 30 days; Duration: 30 Active Glimepiride 4 MG 1 tab(s) orally once a day; Duration: 30 Active Spironolactone 25 mg TAKE 1 tab(s) orall y once a day FOR 30 day(s); Duration: 30 Active Tamsulosin HCl 0.4 mg TAKE 1 cap(s) oral ly twice a day FOR 30 day(s); Duration: 30 Active Simvastatin 20 mg TAKE 1 tab(s) orally once a day (at bedtime) FOR 30 day(s); Duration: 30 Active metFORMIN HCl ER 500 mg take 2 tab(s) by mouth twice daily for 30 days; Duration: 30 Active traZODone HCl 50 MG 1 tablet at bedtime as needed Orally Once a day; Duration: 30 day(s) Active Multivitamin 3 TIMES A WEEK Ac tive Furosemide 40 MG 1 tab(s) orally once a day; Duration: 30 Active Albuterol Sulfate HFA 108 (90 Base) MCG/ACT use 2 inhalations four times daily as needed; Duration: 17 Active Global Ease Inject Pen Terry 32G X 4 MM USE DIRECTED.; Duration: 30 Active Efudex 5 % 1 application Geographic Information Systems Manager ally once daily 12/22/2023 Active Herminia Allergy 60 MG 1 tab(s) orally 2 times a day Active Triamcinolone Acetonide 0.1 % 1 application Externally Twice a day 12/22/2023 Active Problems Problem Type SNOMED Code ICD Code Onset Dates Problem Status W/U Status Risk Notes Problem Type II diabetes mellitus without complication (472014607) Type 2 diabetes mellitus without complications (E11.9) Active confirmed Problem Long-term current use of insulin (931371018) long term care pharmacist (current) use of insulin (Z79.4) Active confirmed Vital Signs Weight 229.4 lbs 12/22/2023 Blood pressure systolic 122 mm Hg 12/22/19 24 Blood pressure diastolic 76 mm Hg 024 Heart Rate 85 /min 12/22/2023 Height 65 in in 12/22/2023 BMI 38.17 kg/m2 12/22/2023 Encounters Encounter Location Date Provider Diagnosis [facility] [facility] [address] [phone] 12/22/2023 Mishel Kang Actinic keratosis L5 7.0 ; Type 2 diabetes mellitus without complications E11.9 and nursing home (current) use of insulin Z79.4 Assessments Encounter Date Diagnosis (ICD Code) Assessment Notes Treatment Notes Treatment Clinical Notes Section Notes 12/22/2023 Actinic keratosis (ICD-10 - L57.0) 12/22/2023 Type 2 diabetes mellitus without complications (ICD-10 - E11.9) 12/22/2023 long term care pharmacist (current) use of insulin (ICD-10 - Z79.4) Plan Of Treatment Medication Medication Name Sig Start Date Stop Date Notes Efudex 5 % 1 application Geographic Information Systems Manager ally once daily 12/22/2023 Triamcinolone Acetonide 0.1 % 1 applicat ion Externally Twice a day 12/22/2023 Next Appt Details Follow Up: 3 Months, Reason: Provider Name:Mishel Reyes er, 08/19/2025 10:30:00 AM, [address], [address], [place], [place], [id number], Procedure Notes * Category Sub-Category Detail Notes Cryotherapy Actinic Keratosis Number of lesions treated: 3 Method: Bobbi LL-100 used to freeze and refreeze the lesions Post Op instruction: Wash with vinegar w ater twice a day, Apply Vaseline twice a day Progress Notes * Jose RICODOB:[birth year] (74 yo M)Acc No.[id number]:12/22/2023 Progress Notes Patient: Jose BRADEN Provider: Mishel Kang M.D. :1950 A ge:73 Y S ex:Male Date:12/22/2023 Address:[place] [address] Subjective: * Chief Complaints: * 1 . 3 month f/u. 2. Needs labs with PSA & diabetic eye exam. * HPI: C ardiology: The pt is here for a check up on Hypertensipn and Diabetes. Pt states he is not fasting. Pt he has a lesion on the left arm he would like frozen today. Pt states he is schedule for cataract surgery on the right eye on 01/02/24. Denies : Chest Pain. D enies : Short of Breath. D enies : Dizziness. D enies : Palpitations. * ROS: D ERMATOLOGY: no R mena. n o H thad. G ASTROENTEROLOGY: no N ausea. n o V omiting. n o D iarrhea.? U ROLOGY: no D ifficulty urinating. n o B lood in urine. * Medical History: T ype 2 Diabetes, Hypertension, Benign Prostatic Hyperplasia, Hyperlipidemia. * Surgical History: T onsillectomy . * Family History: F ather: , diagnosed with Hypertension, Cancer. M other: , diagnosed with Hypertension, Heart Disease. 2 brother(s) - healthy. . * Social History: C URRENT TOBACCO USE: No . * Medications: T aking Herminia Allergy 60 MG Tablet 1 tab(s) orally 2 times a day , Taking Multivitamin 3 TIMES A WEEK , Taking Furosemide 40 MG Tablet 1 tab(s) orally once a day , Taking Albuterol Sulfate HFA 108 (90 Base) MCG/ACT Aerosol Solution use 2 inhalations four times daily as needed , Taking Global Ease Inject Pen Terry 32G X 4 MM Miscellaneous USE DIRECTED. , Taking traZODone HCl 50 MG Tablet 1 tablet at bedtime as needed Orally Once a day , Taking Glimepiride 4 MG Tablet 1 tab(s) orally once a day , Taking Spironolactone 25 mg Tablet TAKE 1 tab(s) orally once a day FOR 30 day(s) , Taking Tamsulosin HCl 0.4 mg Capsule TAKE 1 cap(s) orally twice a day FOR 30 day(s) , Taking metFORMIN HCl ER 500 mg Tablet Extended Release 24 Hour take 2 tab(s) by mouth twice daily for 30 days , Taking Simvastatin 20 mg Tablet TAKE 1 tab(s) orally once a day (at bedtime) FOR 30 day(s) , Taking Lisinopril-hydroCHLOROthiazide 10-12.5 MG Tablet take 1 tab(s) orally once a day for 30 days , Taking Soliqua 100-33 UNT-MCG/ML Solution Pen-injector 21 units Subcutaneous once daily , Taking Carvedilol 3.125 MG Tablet 1 tab(s) orally 2 times a day , Discontinued Trulicity 0.75 MG/0.5ML Solution Pen-injector as directed Subcutaneous once a week , Discontinued Januvia 25 MG Tablet 1 tab(s) orally once a day , Medication List reviewed and reconciled with the patient * Allergies: N .K.D.A. Objective: * Vitals: W t:229.4, Temp:98.2, BP:122/76, HR:85, O2 Sat:98% on RA, Nurse:LUCIO, Ht: 65 in, BMI:38.17. * Examination: G eneral Examination: General Appearance: N AD, note weight again. H EENT:?unremarkable. O ral cavity: n o lesions, mucosa moist and WNL, no erythema. N nel: ?supple, no lymphadenopathy. C hest: n ormal shape and expansion. H eart: R SR. Lungs: c lear to auscultation. A bdomen: soft and nontender, obese, no organomegaly or masses. N eurologic Exam: I ntact, gait normal. S kin: n ormal, no rash of the legs today!! Actinic lesions of the left forearm. Three treated with cryo. P eripheral pulses: n ormal . B ack: dorsal kyphosis. E xtremities: 2+ leg edema, stasis changes of the right leg. * Physical Examination: Drawing:[id number] Assessment: * Assessment: 1. T ype 2 diabetes mellitus without complications - E11.9 (Primary) 2 . A ctinic keratosis - L57.0 3 . L adela term (current) use of insulin - Z79.4 ? Plan: * Treatment: 2. O thers Start Triamcinolone Acetonide Ointment, 0.1 %, 1 application, Externally, Twice a day, 60 Gram, Refills 0. * Procedures: C ryotherapy Actinic Keratosis: Number of lesions treated: 3 . M ethod: W allach LL-100 used to freeze and refreeze the lesions. P ost Op instruction: W mena with vinegar water twice a day, Apply Vaseline twice a day. * Labs: * L ab: Glycohemoglobin A1c (in house) (Collection Date & Time - 12/22/2023) 7 .2% Value Reference Range g lycohemoglobin 7.2% 5 - 6.5 % * Sonia Davidson 12/22/2023 11:21 :36 AM > results reveiwed w/ pt in office * Procedure Codes: 9 [address] [place], [address] CAPILLARY BLOOD DRAW, [address] GLYCATED HEMOGLOBIN TEST, Modifiers: QW , 82126 DESTRUCTION BENIGN LESION, CRYOSURGERY,ELECTROSURGERY FIRST LESION, 99195 DESTRUCTION BENIGN LESION,CRYO, ELECTRO, 2-14 LESIONS * Follow Up: 3 Months * Images: Billing Information: * Visit Code: 17683 Office Visit, Est Pt., Level 4. Modifiers: 25 * Procedure Codes: [address] [place]. [address] CAPILLARY BLOOD DRAW. 66241 GLYCATED HEMOGLOBIN TEST. Modifiers: QW 80956 DESTRUCTION BENIGN LESION, CRYOSURGERY,ELECTROSURGERY FIRST LESION. 85733 DESTRUCTION BENIGN LESION,CRYO, ELECTRO, 2-14 LESIONS. * Electronic signature of Mishel Kang MD on 05/31/2025 at 09:07 AM EST Sign off status: Pending * Provider: Mishel Kang M.D. Date: 0 12/22/2023 Generated for Percy puga/Sonja/Yuliya on: 1 08/01/2024 09:07 AM EST History and Physical Notes * HPI (History of Present Illness) Category Sub-Category Detail Notes Category Not es Cardiology Short of Breath Chest Pain Palpitations Dizziness Examination Category Sub-Category Detail Notes Category Not es General Examination HEENT: unremarkable Heart: RSR Lungs: clear to auscultatio n Abdomen: soft and nontender, obese, no organomegaly or masses Extremities: 2+ leg edema, stasis changes of the right leg General Appearance: NAD, note weight aga in Skin: normal, no rash of the legs today!! Actinic lesions of the left forearm. Three treated with cryo Neurologic Exam: Intact, gait normal Neck: supple, no lymphaden opathy Oral cavity: no lesions, mucosa m oist and WNL, no erythema Peripheral pulses: normal Back: dorsal kyphosis Chest: normal shape and exp ansion
--- OUTSIDE RECORDS SUMMARY | 2024-03-26 04:45 | XMS_ITS ---
Author Organization [facility] Address [address] [facility] [address] [place] [phone] Care Team Providers Care Dietetic Technician Registered Name Role Phone Jorge LuisMishelory Primary Care Provider Allergies No Known Allergies Results Component Value Reference Range Notes Glycohemoglobin A1c (in hous e) Reviewed date:03/29/2024 09:44:01 AM Interpretation:7.0% Performing Lab: Notes/Report: 7.0% glycohemoglobin 7.0% 5 - 6.5 % P-Comprehensive Metabolic Pa mau (CMP) Reviewed date:03/30/2024 04:18:16 PM Interpretation:gluc 161 Performing Lab: Notes/Report: Test performed by [facility] [address] [place] [address] , [address], [place] [address] Salinas Aguila MD, Newcomer Hostess CLIA: [id number] Sodium 142 135-145 mmol/L Potassium 4.9 3.5-5.3 mmol/L Chloride 103 97-108 mmol/L CO2 29 22-32 mmol/L Glucose 161 65-99 mg/dL BUN 16 8-23 mg/dL Creatinine 0.78 0.70-1.30 mg/dL Calcium 9.0 8.6-10.4 mg/dL eGFR by Creatinine 95 >59 mL/min/1.73m2 Protein 6.3 6.0-8.3 g/dL Albumin 4.0 3.5-5.3 g/dL Alkaline Phosphatase 88 40-129 IU/L ALT (SGPT) 18 <5-55 IU/L AST (SGOT) 18 <5-46 IU/L Bilirubin, Total 0.5 <0.2-1.2 mg/dL A/G Ratio 1.7 1.1-2.5 P-Lipid Panel Reviewed date:03/30/2024 04:18:16 PM Interpretation:Normal Performing Lab: Notes/Report: Test performed by [facility] [address] [facility] [address] [place] [address] Salinas Aguila MD, Newcomer Hostess CLIA: [id number] Cholesterol 109 <200 mg/dL Triglycerides 134 <150 mg/dL HDL Cholesterol 41 >39 mg/dL Cholesterol / HDL Ratio 2.66 0.00-4.99 Ratio Non-HDL Cholesterol 68 <130 mg/dL LDL Cholesterol (Calculation) 41 <130 mg/dL LDL Cholesterol Levels* Less than 100 mg/dL Optimal 100 to 129 mg/dL Near Optimal/ Above Optimal 130 to 159 mg/dL Borderline High 160 to 189 mg/dL High 190 mg/dL and above Very High * Categories as recommended by the 2004 ATPIII guidelines LDL/HDL Ratio 1.0 <3.3 Ratio LDL Cholesterol Patient History Test Date: 03/26/2024 LDL Results: 41 Units: mg/dL % Change: - P-PSA Reviewed date:03/30/2024 04:18:16 PM Interpretation:4.78 Performing Lab: Notes/Report: Test performed by [facility] [address] [facility] [address], [place] [address] Salinas Aguila MD, Newcomer Hostess CLIA: [id number] PSA 4.78 <4.00 ng/mL Please note this is an ultrasensitive PSA assay with a lower limit of detection of 0.014 ng/mL. This test is performed by the [employer]i ECLIA methodology. Values obtained with different assay methods or kits cannot be directly compared. REASON FOR VISIT 3 month check, Needs labs with PSA, diabetic eye exam, & flu vaccine Medications Medication SIG (Take, Route, Frequency, Duration) Notes Start Date End Date Status Efudex 5 % 1 application Bundle Helper ally once daily 12/22/2023 Active Furosemide 40 MG 1 tab(s) orally once a day; Duration: 30 Active Multivitamin 3 TIMES A WEEK Ac tive Carvedilol 3.125 MG 1 tab(s) orally 2 ti mes a day; Duration: 30 days Active Albuterol Sulfate HFA 108 (90 Base) MCG/ACT use 2 inhalations four times daily as needed; Duration: 17 Active Herminia Allergy 60 MG 1 tab(s) orally 2 times a day Active metFORMIN HCl ER 500 mg take 2 tab(s) by mouth twice daily for 30 days; Duration: 30 Active Spironolactone 25 mg TAKE 1 tab(s) orall y once a day FOR 30 day(s); Duration: 30 Active Glimepiride 4 mg TAKE ONE TABLET BY M OUTH ONCE DAILY; Duration: 30 Active Lisinopril-hydroCHLOROthiaz laila 10-12.5 MG take 1 tab(s) orally once a day for 30 days; Duration: 30 Active BD Pen Needle Candida 2nd Gen 32G X 4 MM USE DIRECTED.; Duration: 30 Active Soliqua 100-33 UNT-MCG/ML inject 21 unit s Subcutaneous once daily 30 day(s); Duration: 30 Active traZODone HCl 50 mg TAKE ONE TABLET BY M OUTH ONCE DAILY AT BEDTIME NEEDED; Duration: 30 Active Simvastatin 20 mg TAKE 1 tab(s) orally once a day (at bedtime) FOR 30 day(s); Duration: 30 Active Tamsulosin HCl 0.4 mg TAKE 1 cap(s) oral ly twice a day FOR 30 day(s); Duration: 30 Active Triamcinolone Acetonide 0.1 % 1 application Externally Twice a day 12/22/2023 Active Immunizations Vaccine Route Administration Date Status Comme nts Fluzone High Dose (65yr and older) IM Intramuscular 03/26/2024 Pending Vital Signs Weight 235.2 lbs 03/26/2024 Blood pressure systolic 130 mm Hg 03/26/20 24 Blood pressure diastolic 80 mm Hg 024 Heart Rate 81 /min 03/26/2024 Height 65 in in 03/26/2024 BMI 39.14 kg/m2 03/26/2024 Encounters Encounter Location Date Provider Diagnosis [facility] [facility] 36 [facility] [address] [place] [phone] 03/26/2024 Mishel Kang Essential hypertensi on I10 ; Benign prostatic hyperplasia with lower urinary tract symptoms N40.1 ; Mixed hyperlipidemia E78.2 ; Actinic keratoses L57.0 ; Type 2 diabetes mellitus without complications E11.9 and Encounter for immunization Z23 Assessments Encounter Date Diagnosis (ICD Code) Assessment Notes Treatment Notes Treatment Clinical Notes Section Notes 03/26/2024 Essential hypertension (ICD-10 - I10) 03/26/2024 Benign prostatic hyperplasia with lower urinary tract symptoms (ICD-10 - N40.1) 03/26/2024 Mixed hyperlipidemia (ICD-10 - E78.2) 03/26/2024 Actinic keratoses (ICD-10 - L57.0) 03/26/2024 Type 2 diabetes mellitus without complications (ICD-10 - E11.9) 03/26/2024 Encounter for immunization (ICD-10 - Z23) Plan Of Treatment Next Appt Details Follow Up: 5M, Reason: Provider Name:Mishel Reyes er, 08/19/2025 10:30:00 AM, [address] [facility] [address] [facility], [address], [place], [id number], Procedure Notes * Category Sub-Category Detail Notes Cryotherapy Actinic Keratosis Number of lesions treated: 2 lesions, one of the right ear and one of the arm Method: Bobbi LL-100 used to freeze and refreeze the lesions, The patient tolerated the procedure well. Post Op instruction: Wash with vinegar w ater twice a day, Apply Vaseline twice a day Progress Notes * Jose RICODOB:[birth year] (74 yo M)Acc No.[id number]:03/26/2024 Progress Notes Patient: Jose BRADEN Provider: Mishel Kang M.D. :1950 A ge:73 Y S ex:Male Date:03/26/2024 Address:[place] [address] [place], [place] [id number] Subjective: * Chief Complaints: * 1 . 3 month check. 2. Needs labs with PSA, diabetic eye exam, & flu vaccine. * HPI: C ardiology: The patient is here for a check up on Hypertension, Hyperlipidemia and Diabetes. Pt states he is doing good except for a spot on the right ear and right upper arm he would like checked out. Denies : Chest Pain. D enies : [...] Hyperplasia, Hyperlipidemia. * Surgical History: T onsillectomy , Right irridectomy, Dr. Leon, [facility] 01/02/2024. * Family History: F ather: , diagnosed [...] four times daily as needed , Taking Carvedilol 3.125 MG Tablet 1 tab(s) orally 2 times a day , Taking Efudex 5 % Cream 1 application Externally once daily , Taking Triamcinolone Acetonide 0.1 % Ointment 1 application Externally Twice a day , Taking Soliqua 100-33 UNT-MCG/ML Solution Pen-injector inject 21 units Subcutaneous once daily 30 day(s) , Taking BD Pen Needle Candida 2nd Gen 32G X 4 MM Miscellaneous USE DIRECTED. , Taking traZODone HCl 50 mg Tablet TAKE ONE TABLET BY MOUTH ONCE DAILY AT BEDTIME NEEDED , Taking Tamsulosin HCl 0.4 mg Capsule TAKE 1 cap(s) orally twice a day FOR 30 day(s) , Taking Simvastatin 20 mg Tablet TAKE 1 tab(s) orally once a day (at bedtime) FOR 30 day(s) , Taking Spironolactone 25 mg Tablet TAKE 1 tab(s) orally once a day FOR 30 day(s) , Taking metFORMIN HCl ER 500 mg Tablet Extended Release 24 Hour take 2 tab(s) by mouth twice daily for 30 days , Taking Lisinopril-hydroCHLOROthiazide 10-12.5 MG Tablet take 1 tab(s) orally once a day for 30 days , Taking Glimepiride 4 mg Tablet TAKE ONE TABLET BY MOUTH ONCE DAILY , Medication List reviewed and reconciled with the patient * Allergies: N .K.D.A. Objective: * Vitals: W t:235.2, Temp:98.1, BP:130/80, HR:81, O2 Sat:98% on RA, Nurse:LUCIO, Ht: 65 in, BMI:39.14. * Examination: G eneral Examination: General Appearance: [...] Exam: I ntact, gait normal. S kin: A ctinic lesions of the right upper arm above elbow, 4mm scaling lesion of the right ear. P eripheral pulses: n ormal . B ack: dorsal kyphosis. E xtremities: 2 + leg edema, skin intact. ? Assessment: * Assessment: 1. E ssential hypertension - I10 (Primary) 2 . B enign prostatic hyperplasia with lower urinary tract symptoms - N40.1 3 . M ixed hyperlipidemia - E78.2? 4. A ctinic keratoses - L57.0 5 . T ype 2 diabetes mellitus without complications - E11.9 6 . E ncounter for immunization - Z23 ? Plan: * Treatment: Value Reference Range A /G Ratio 1.7 1.1-2.5 - * A lbumin 4.0 3.5-5.3 - g/dL * A lkaline Phosphatase 88 40-129 - IU/L * A LT (SGPT) 18 <5-55 - IU/L * A ST (SGOT) 18 <5-46 - IU/L * B ilirubin, Total 0.5 <0.2-1.2 - mg/dL * B UN 16 8-23 - mg/dL * C alcium 9.0 8.6-10.4 - mg/dL * C hloride 103 97-108 - mmol/L * C O2 29 22-32 - mmol/L * C reatinine 0.78 0.70-1.30 - mg/dL * G lucose 161 H 65-99 - mg/dL * P otassium 4.9 3.5-5.3 - mmol/L * S odium 142 135-145 - mmol/L * P rotein 6.3 6.0-8.3 - g/dL * e GFR by Creatinine 95 >59 - mL/min/1.73m2 * Tamara Olsen 03/30/2024 4:18 :08 PM >See phone encounter 2.?Benign prostatic hyperplasia with lower urinary tract symptoms?LAB: P-PSA (Collection Date & Time - 03/26/2024 09:23 AM)?4.78* Value Reference Range P SA 4.78 H <4.00 - ng/mL * Tamara Olsen 03/30/2024 4:18 :08 PM >See phone encounter 3.?Mixed hyperlipidemia?LAB: P-Lipid Panel (Collection Date & Time - 03/26/2024 09:23 AM)?Normal* Value Reference Range C holesterol / HDL Ratio 2.66 0.00-4.99 - Ratio * C holesterol 109 <200 - mg/dL * H DL Cholesterol 41 >39 - mg/dL * L DL Cholesterol (Calculation) 41 <130 - mg/d L * L DL/HDL Ratio 1.0 <3.3 - Ratio * N on-HDL Cholesterol 68 <130 - mg/dL * T riglycerides 134 <150 - mg/dL * Tamara Olsen 03/30/2024 4:18 :08 PM >See phone encounter 4.?Type 2 diabetes mellitus without complications?LAB: Glycohemoglobin A1c (in house) (Collection Date & Time - 03/26/2024)? 7.0%* Value Reference Range g lycohemoglobin 7.0% 5 - 6.5 % * Annia Tian 03/26/2024 9:40 :16 AM > Provider reviewed results while patient in office. * Procedures: C ryotherapy Actinic Keratosis: Number of lesions treated: 2 lesions, one of the right ear and one of the arm. M ethod: W allach LL-100 used to freeze and refreeze the lesions, The patient tolerated the procedure well.. P ost Op instruction: W mena with vinegar water twice a day, Apply Vaseline twice a day. * Immunizations: Fluzone High Dose (65yr and older) : 0.5 mL (Route: Intramuscular) on Left Deltoid (Pending) (Encounter for immunization) * Procedure Codes: 9 [address] [place], [address] CAPILLARY BLOOD DRAW, [address] GLYCATED HEMOGLOBIN TEST, Modifiers: QW * Follow Up: 5 M * Images: Billing Information: * Visit Code: 50790 Office Visit, Est Pt., Level 4. * Procedure Codes: [address] [place]. [address] CAPILLARY BLOOD DRAW. 64056 GLYCATED HEMOGLOBIN TEST. Modifiers: QW * Electronic signature of Mishel Kang MD on 05/31/2025 at 09:06 AM EST Sign off status: Pending * Provider: Mishel Kang M.D. Date: Generated for Percy puga/Sonja/Lorenasmitting on: 08/01/2024 09:06 AM EST History and Physical Notes * HPI (History of Present Illness) Category Sub-Category Detail Notes Category Not es Cardiology Short of Breath Chest Pain Palpitations Dizziness Examination Category Sub-Category Detail Notes Category Not es General Examination HEENT: unremarkable Heart: RSR Lungs: clear to auscultatio n Abdomen: soft and nontender, obese, no organomegaly or masses Extremities: 2+ leg edema, skin i ntact General Appearance: NAD, note weight aga in Skin: Actinic lesions of t he right upper arm above elbow, 4mm scaling lesion of the right ear Neurologic Exam: Intact, gait normal Neck: supple, no lymphaden opathy Oral cavity: no lesions, mucosa m oist and WNL, no erythema Peripheral pulses: normal Back: dorsal kyphosis Chest: normal shape and exp ansion
--- OUTSIDE RECORDS SUMMARY | 2024-04-08 05:15 | XMS_ITS ---
Author Organization [facility] Address [address] [facility] 36 [facility] [address] [place] [phone] Care Team Providers Care Hand Molder Name Role Phone Jorge LuisMishelory Primary Care Provider Joel Hopkins Unavailable [phone] Allergies No Known Allergies Results Component Value Reference Range Notes H-CBC Reviewed date:04/08/2024 11:55:29 AM Interpretation:rbc 4.54, hgb 13.4, hct 40.6 Performing Lab: Notes/Report: WBC 8.5 4.8-10.8 K/mm3 RBC 4.54 4.60-6.20 M/mm3 HGB 13.4 14.1-18.0 g/dL HCT 40.6 42.0-52.0 % MCV 89.4 80-94 fl MCH 29.6 27.0-31.2 pg MCHC 33.1 31.8-35.4 g/dL RDW 14.9 11.5-17.5 % PLT 206 142-424 K/mm3 MPV 6.8 7.4-10.4 fl NE% 79.7 37.0-80.0 % LY% 11.3 10-50 % MO% 6.7 1.7-9.3 % EO% 1.9 0.1-12.0 % BA% 0.5 0.1-2.0 % NE# 6.7 1.8-7.8 K/mm3 LY# 1.0 0.7-4.5 K/mm3 MO# 0.6 0.1-1.0 K/mm3 EO# 0.2 0.0-0.4 K/mm3 BA# 0.0 0-0.2 K/mm3 REASON FOR VISIT SINUS Medications Medication SIG (Take, Route, Frequency, Duration) Notes Start Date End Date Status Carvedilol 3.125 MG 1 tab(s) orally 2 ti mes a day; Duration: 30 days Active Furosemide 40 MG 1 tab(s) orally once a day; Duration: 30 Active Multivitamin 3 TIMES A WEEK Ac tive Herminia Allergy 60 MG 1 tab(s) orally 2 times a day Active Efudex 5 % 1 application Modeling Instructor ally once daily 12/22/2023 Active Glimepiride 4 mg TAKE ONE TABLET BY M OUTH ONCE DAILY; Duration: 30 Active Lisinopril-hydroCHLOROthiaz laila 10-12.5 MG take 1 tab(s) orally once a day for 30 days; Duration: 30 Active Cefdinir 300 MG 1 cap(s) Orally Two times a day; Duration: 7 days 04/08/2024 Active Albuterol Sulfate HFA 108 (90 Base) MCG/ACT use 2 inhalations four times daily as needed; Duration: 17 Active Soliqua 100-33 UNT-MCG/ML inject 21 unit s Subcutaneous once daily 30 day(s); Duration: 30 Active metFORMIN HCl [...] day FOR 30 day(s); Duration: 30 Active traZODone HCl 50 mg TAKE ONE TABLET BY M OUTH ONCE DAILY AT BEDTIME NEEDED; Duration: 30 Active BD Pen Needle Candida 2nd Gen 32G X 4 MM USE DIRECTED.; Duration: 30 Active Triamcinolone Acetonide 0.1 % 1 application Externally Twice a day 12/22/2023 Active Vital Signs Weight 236.6 lbs 04/08/2024 Blood pressure systolic 130 mm Hg 04/08/20 24 Blood pressure diastolic 78 mm Hg 024 Heart Rate 111 /min 04/08/2024 Height 65 in in 04/08/2024 BMI 39.37 kg/m2 04/08/2024 Encounters Encounter Location Date Provider Diagnosis [facility] [facility] [address] [place] [phone] 04/08/2024 Joel Hopkins Acute URI J06.9 Assessments Encounter Date Diagnosis (ICD Code) Assessment Notes Treatment Notes Treatment Clinical Notes Section Notes 04/08/2024 Acute URI (ICD-10 - J06.9) Plan Of Treatment Medication Medication Name Sig Start Date Stop Date Notes Cefdinir 300 MG 1 cap(s) Orally Two times a day; Duration: 7 days 04/08/2024 Next Appt Details Follow Up: prn, Reason: Provider Name:Mishel Reyes er, 08/19/2025 10:30:00 AM, [address], [address], [place], [place], [phone], Progress Notes * Jose RICODOB:[birth year] (74 yo M)Acc No.[id number]:04/08/2024 Progress Notes Patient: Jose BRADEN Provider: Aleena Hopkins M.D. :1950 A ge:73 Y S ex:Male Date:04/08/2024 [address] Pcp:Mishel Kang Subjective: * Chief Complaints: * 1 . SINUS. * HPI: E NT/respiratory: 73 year old male presents with c/o cough P t complains of small amount of white sputum cough for 2 days. Associated with post nasal drainage and hoarse voice . Pt states he has been taking Mucinex and Bromfed and has had some improvement. Denies : Fever. D enies : body aches. * ROS: D ERMATOLOGY: no R mena. n o H thad. G ASTROENTEROLOGY: no N ausea. n o V omiting. U ROLOGY: no D ifficulty urinating. n o B lood in urine. * Medical History: T ype 2 Diabetes, Hypertension, Benign Prostatic Hyperplasia, Hyperlipidemia. * Surgical History: T onsillectomy , Right Irridectomy, Dr. Leon, [facility] 01/02/2024. * Hospitalization/Major Diagno stic Procedure: D enies Past Hospitalization. * Family History: F ather: , diagnosed with Hypertension, Cancer. M other: , diagnosed with Hypertension, Heart Disease. 2 brother(s) - healthy. . * Social History: C URRENT TOBACCO USE: No . * Medications: T eleno Herminia Allergy 60 MG Tablet 1 tab(s) orally 2 times a day , Taking Multivitamin 3 TIMES A WEEK , Taking Furosemide 40 MG Tablet 1 tab(s) orally once a day , Taking Carvedilol 3.125 MG Tablet 1 tab(s) orally 2 times a day , Taking Efudex 5 % Cream 1 application Externally once daily , Taking Triamcinolone Acetonide 0.1 % Ointment 1 application Externally Twice a day , Taking BD Pen Needle Candida 2nd [...] ONE TABLET BY MOUTH ONCE DAILY , Taking Soliqua 100-33 UNT-MCG/ML Solution Pen-injector inject 21 units Subcutaneous once daily 30 day(s) , Taking Albuterol Sulfate HFA 108 (90 Base) MCG/ACT Aerosol Solution use 2 inhalations four times daily as needed , Medication List reviewed and reconciled with the patient * Allergies: N .K.D.A. Objective: * Vitals: W t:236.6, Temp:98.0, BP:130/78, HR:111, O2 Sat:96% on RA, Nurse:bret, Ht: 65 in, BMI:39.37. * Examination: E NT/Respiratory: General Appearance: N AD. E yes: P ERRLA, sclera clear. E ars: a uditory canals normal bilaterally, TM's WNL. N ose : n thomas patent, pale, edematous turbinates, minimal clear drainage. S inuses : non tender bilaterally. O ral cavity : erythema without exudate on pharynx. N nel : n o cervical lymphadenopathy. H eart : R RR. L ungs: c lear to auscultation bilaterally. Assessment: * Assessment: 1. A shima URI - J06.9 (Primary) Plan: * Treatment: Value Reference Range W BC 8.5 4.8-10.8 - K/mm3 * R BC 4.54 L 4.60-6.20 - M/mm3 * H GB 13.4 L 14.1-18.0 - g/dL * H CT 40.6 L 42.0-52.0 - % * M CV 89.4 80-94 - fl * M CH 29.6 27.0-31.2 - pg * M CHC 33.1 31.8-35.4 - g/dL * R DW 14.9 11.5-17.5 - % * P LT 206 142-424 - K/mm3 * M PV 6.8 L 7.4-10.4 - fl * N E% 79.7 37.0-80.0 - % * L Y% 11.3 10-50 - % * M O% 6.7 1.7-9.3 - % * E O% 1.9 0.1-12.0 - % * B A% 0.5 0.1-2.0 - % * N E# 6.7 1.8-7.8 - K/mm3 * L Y# 1.0 0.7-4.5 - K/mm3 * M O# 0.6 0.1-1.0 - K/mm3 * E O# 0.2 0.0-0.4 - K/mm3 * B A# 0.0 0-0.2 - K/mm3 * Tamara Olsen 04/08/2024 11:5 5:20 AM >See phone encounter * Procedure Codes: G 2211 Complex e/m visit add on * Follow Up: p rn * Images: Billing Information: * Visit Code: 79690 Office Visit, Est Pt., Level 3. * Procedure Codes: G2211 Complex e/m visit add on. * Electronic signature of Suyapa Hopkins MD on 05/31/2025 at 09:07 AM EST Sign off status: Pending * Provider: Aleena Hopkins M.D. Date: Generated for Percy puga/Sonja/Yuliya on: 08/01/2024 09:07 AM EST History and Physical Notes * HPI (History of Present Illness) Category Sub-Category Detail Notes Category Not es ENT/respiratory cough Pt complains of small amount of white sputum cough for 2 days. Associated with post nasal drainage and hoarse voice . Pt states he has been taking Mucinex and Bromfed and has had some improvement Fever body aches Examination Category Sub-Category Detail Notes Category Not es ENT/Respiratory Oral cavity : erythema without exudate on pharynx Sinuses : non tender bilateral ly Ears: auditory canals norm al bilaterally, TM's WNL Neck : no cervical lymphade nopathy Heart : RRR Lungs: clear to auscultatio n bilaterally General Appearance: NAD Nose : nares patent, pale, edematous turbinates, minimal clear drainage Eyes: PERRLA, sclera clear
--- OUTSIDE RECORDS SUMMARY | 2024-08-27 05:00 | XMS_ITS ---
Author Organization [facility] Address [address] [facility] [address] [place] [id number] Care Team Providers Care Pulper Operator Name Role Phone Jorge LuisMishelory Primary Care Provider Allergies No Known Allergies Results Component Value Reference Range Notes Glycohemoglobin A1c (in hous e) Reviewed date:08/31/2024 04:22:58 PM Interpretation:8.7% Performing Lab: Notes/Report: 8.7% glycohemoglobin 8.7% 5 - 6.5 % P-Comprehensive Metabolic Pa mau (CMP) Reviewed date:08/31/2024 04:22:58 PM Interpretation:gluc 202 Performing Lab: Notes/Report: Test performed by [facility], [facility] [address] [place] [address] , [address], [place] [address] Salinas Aguila MD, [employer] CLIA: [id number] Sodium 139 135-145 mmol/L Potassium 4.7 3.5-5.3 mmol/L Chloride 99 97-108 mmol/L CO2 30 22-32 mmol/L Glucose 202 65-99 mg/dL BUN 17 8-23 mg/dL Creatinine 0.77 0.70-1.30 mg/dL Calcium 9.1 8.6-10.4 mg/dL eGFR by Creatinine 95 >59 mL/min/1.73m2 Protein 6.4 6.0-8.3 g/dL Albumin 4.3 3.5-5.3 g/dL Alkaline Phosphatase 101 40-129 IU/L ALT (SGPT) 17 <5-55 IU/L AST (SGOT) 14 <5-46 IU/L Bilirubin, Total 0.6 <0.2-1.2 mg/dL A/G Ratio 2.0 1.1-2.5 Echocardiogram Reviewed date:09/27/2024 04:14:10 PM Interpretation: Performing Lab: Notes/Report: EKG Reviewed date:09/08/2024 04:45:51 PM Interpretation: Performing Lab: Notes/Report: REASON FOR VISIT 5 months, Needs labs & diabetic eye exam Medications Medication SIG (Take, Route, Frequency, Duration) Notes Start Date End Date Status Multivitamin 3 TIMES A WEEK Ac tive Herminia Allergy 60 MG 1 tab(s) orally 2 times a day Active Lisinopril-hydroCHLOROthiaz laila 10-12.5 MG take 1 tab(s) orally once a day for 30 days; Duration: 30 Active Spironolactone 25 mg TAKE 1 tab(s) orall y once a day FOR 30 day(s); Duration: 30 Active Furosemide 40 MG 1 tab(s) orally once a day; Duration: 30 Active metFORMIN HCl ER 500 mg take 2 tab(s) by mouth twice daily for 30 days; Duration: 30 Active Tamsulosin HCl 0.4 mg TAKE 1 cap(s) oral ly twice a day FOR 30 day(s); Duration: 30 Active Soliqua 100-33 UNT-MCG/ML inject 21 unit s Subcutaneous once daily 30 day(s); Duration: 30 Active Simvastatin 20 mg TAKE 1 tab(s) orally once a day (at bedtime) FOR 30 day(s); Duration: 30 Active traZODone HCl 50 mg TAKE ONE TABLET BY M OUTH ONCE DAILY AT BEDTIME NEEDED; Duration: 30 Active Triamcinolone Acetonide 0.1 % 1 application Externally Twice a day 12/22/2023 Active Efudex 5 % 1 application Insurance Associate ally once daily 12/22/2023 Active Glimepiride 4 mg TAKE ONE TABLET BY M OUTH ONCE DAILY; Duration: 30 Active Cefdinir 300 MG 1 cap(s) Orally Two times a day; Duration: 7 days 04/08/2024 Active Albuterol Sulfate HFA 108 (90 Base) MCG/ACT use 2 inhalations four times daily as needed; Duration: 17 Active Carvedilol 3.125 MG 1 tab(s) orally 2 ti mes a day; Duration: 30 days Active Vital Signs Weight 244.2 lbs 08/27/2024 Blood pressure systolic 120 mm Hg 08/28/19 25 Blood pressure diastolic 74 mm Hg 025 Heart Rate 91 /min 08/27/2024 Height 65 in in 08/27/2024 BMI 40.63 kg/m2 08/27/2024 Encounters Encounter Location Date Provider Diagnosis [facility] [address] [facility] [address] [facility] [address] [place], [place] [id number] 08/27/2024 Mishel Kang Type 2 diabetes mellitus without complications E11.9 ; extermination inspector (current) use of insulin Z79.4 ; Localized edema R60.0 ; Venous stasis dermatitis of right lower extremity I87.2 ; Essential hypertension I10 and Actinic keratosis L57.0 Assessments Encounter Date Diagnosis (ICD Code) Assessment Notes Treatment Notes Treatment Clinical Notes Section Notes 08/27/2024 Type 2 diabetes mellitus without complications (ICD-10 - E11.9) 08/27/2024 [facility] (current) use of insulin (ICD-10 - Z79.4) 08/27/2024 Localized edema (ICD-10 - R60.0) 08/27/2024 Venous stasis dermatitis of right lower extremity (ICD-10 - I87.2) 08/27/2024 Essential hypertension (ICD-10 - I10) 08/27/2024 Actinic keratosis (ICD-10 - L57.0) Plan Of Treatment Next Appt Details Follow Up: 3 Months, Reason: Provider Name:Mishel Reyes , 08/19/2025 10:30:00 AM, [address] [facility] [address] [facility], [address], [place], [place], [id number], Procedure Notes * Category Sub-Category Detail Notes Cryotherapy Actinic Keratosis Number of lesions treated: 6 Method: Bobbi LL-100 used to freeze and refreeze the lesions Post Op instruction: Wash with vinegar w ater twice a day , Apply Vaseline twice a day Procedure-other dressing changed Soft-Roll , Cob an wrap of the right leg Progress Notes * Jose RICODOB:[birth year] (74 yo M)Acc No.[id number]:08/27/2024 Progress Notes Patient: Jose BRADEN Provider: Mishel Kang M.D. :1950 A ge:74 Y S ex:Male Date:08/27/2024 Address:[address], [facility] Subjective: * Chief Complaints: * 1 . 5 months. 2. Needs labs & diabetic eye exam. * HPI: C ardiology: The patient is here today for a check up on Hypertension , Hyperlipidemia, and Diabetes. Pt states he is doing good and denies any new concerns. Pt is fasting. 74 year old male presents with c/o Short of Breath w ith exertion. Denies : Chest Pain. D enies : Dizziness. D enies : Palpitations. D ermatology: Pt states he has some skin lesion he would like checked out on his right ear, chest and left elbow. * ROS: D ERMATOLOGY: no R mena. n o H thad. G ASTROENTEROLOGY: no N ausea. n o V omiting. n o D iarrhea.? U ROLOGY: no D ifficulty urinating. n o B lood in urine. * Medical History: T ype 2 Diabetes, Hypertension, Benign Prostatic Hyperplasia, Hyperlipidemia. * Surgical History: T onsillectomy , Right Irridectomy, Dr. Leon, [facility] 01/02/2024. * Family History: F ather: , diagnosed with Cancer, Hypertension. M other: , diagnosed with Heart Disease, Hypertension. 2 brother(s) - healthy. . * Social [...] application Externally Twice a day , Taking Albuterol Sulfate HFA 108 (90 Base) MCG/ACT Aerosol Solution use 2 inhalations four times daily as needed , Taking Cefdinir 300 MG Capsule 1 cap(s) Orally Two times a day , Taking Glimepiride 4 mg Tablet TAKE ONE TABLET BY MOUTH ONCE DAILY , Taking traZODone HCl 50 mg Tablet TAKE ONE TABLET BY MOUTH ONCE DAILY AT BEDTIME NEEDED , Taking Soliqua 100-33 UNT-MCG/ML Solution Pen-injector inject 21 units Subcutaneous once daily 30 day(s) , Taking Tamsulosin HCl 0.4 [...] a day FOR 30 day(s) , Taking Lisinopril-hydroCHLOROthiazide 10-12.5 MG Tablet take 1 tab(s) orally once a day for 30 days , Medication List reviewed and reconciled with the patient * Allergies: N .K.D.A. Objective: * Vitals: W t: 244.2, Temp: 98.2, BP: 120/74, HR: 91, O2 Sat: 95% on RA, Nurse: LUCIO, Ht: 65 in, BMI:40.63. * Examination: G eneral Examination: General Appearance: [...] S kin: A ctinic lesions of the scalp, four lesions, scaling lesion of the right ear. Excoriated lesion of the left upper arm.?Peripheral pulses: n ormal . B ack: dorsal kyphosis. E xtremities: 2 + leg edema, skin intact, erythema without open wounds, right leg, lesser erythema of left leg.? Assessment: * Assessment: 1. T ype 2 diabetes mellitus without complications - E11.9 (Primary) 2 . L adela term (current) use of insulin - Z79.4 3 . L ocalized edema - R60.0 ? 4 . V enous stasis dermatitis of right lower extremity - I87.2 5 . E ssential hypertension - I10 6 . A ctinic keratosis - L57.0 Plan: * Treatment: Value Reference Range g lycohemoglobin 8.7% 5 - 6.5 % * LetySonia 08/31/2024 04: 22:44 PM > see phone encounter 2.?Localized edema?Imaging: Echocardiogram (Performed Date - 09/06/2024)* Jud Rodgers 08/27/2024 11:17 :20 AM > no auth required; CPT code 77258; [facility] 09/27/2024 04:14:02 PM > see TE 3.?Venous stasis dermatitis of right lower extremity?Imaging: Echocardiogram (Performed Date - 09/06/2024)* Jud Rodgers 08/27/2024 11:17 :20 AM > no auth required; CPT code 79868; [facility] 09/27/2024 04:14:02 PM > see TE 4.?Essential hypertension?LAB: P-Comprehensive Metabolic Panel (CMP) (Collection Date & Time - 08/27/2024 12:09 PM)?gluc 202* Value Reference Range A /G Ratio 2.0 1.1-2.5 - * A lbumin 4.3 3.5-5.3 - g/dL * A lkaline Phosphatase 101 40-129 - IU/L * A LT (SGPT) 17 <5-55 - IU/L * A ST (SGOT) 14 <5-46 - IU/L * B ilirubin, Total 0.6 <0.2-1.2 - mg/dL * B UN 17 8-23 - mg/dL * C alcium 9.1 8.6-10.4 - mg/dL * C hloride 99 97-108 - mmol/L * C O2 30 22-32 - mmol/L * C reatinine 0.77 0.70-1.30 - mg/dL * G lucose 202 H 65-99 - mg/dL * P otassium 4.7 3.5-5.3 - mmol/L * S odium 139 135-145 - mmol/L * P rotein 6.4 6.0-8.3 - g/dL * e GFR by Creatinine 95 >59 - mL/min/1.73m2 * Sonia Davidson 08/31/2024 04: 22:44 PM > see phone encounter ?Imaging: Echocardiogram (Performed Date - 09/06/2024)* Jud Rodgers 08/27/2024 11:17 :20 AM > no auth required; CPT code 75242; fax[facility] to [facility] ElsieSonia Davidson 09/27/2024 04:14:02 PM > see TE ?Imaging: EKG (Performed Date - 09/06/2024)* Jud Rodgers 08/27/2024 11:14 :23 AM > faxed to [facility] Outpatient EvieSonia Davidson 09/08/2024 04:44:17 PM > will attach tracing. see phone encounter. * Procedures: P rocedure-other: dressing changed S oft-Roll , Coban wrap of the right leg.? C ryotherapy Actinic Keratosis: Number of lesions treated: 6 . M ethod: W allach LL-100 used to freeze and refreeze the lesions. P ost Op instruction: W mena with vinegar water twice a day , Apply Vaseline twice a day. * Procedure Codes: 1 7000 DESTRUCTION BENIGN LESION, CRYOSURGERY,ELECTROSURGERY FIRST LESION, 64464 DESTRUCTION BENIGN LESION,CRYO, ELECTRO, 2-14 LESIONS, G2211 Complex e[place], [address] CAPILLARY BLOOD DRAW, 66023 GLYCATED HEMOGLOBIN TEST, Modifiers: QW , G8752 MOST RECENT SYSTOLIC BP < 140MM HG, G8754 MOST RECENT DIASTOLIC BP < 90MM HG, 3052F HG A1C>EQUAL 8.0%<EQUAL 9.0% * Follow Up: 3 Months * Images: Billing Information: * Visit Code: 82287 Office Visit, Est Pt., Level 3. Modifiers: 25 * Procedure Codes: 07008 DESTRUCTION BENIGN LESION, CRYOSURGERY,ELECTROSURGERY FIRST LESION. 70682 DESTRUCTION BENIGN LESION,CRYO, ELECTRO, 2-14 LESIONS. G2211 Complex e/[place]. [address] CAPILLARY BLOOD DRAW. 12980 GLYCATED HEMOGLOBIN TEST. Modifiers: QW G8752 MOST RECENT SYSTOLIC BP < 140MM HG. G8754 MOST RECENT DIASTOLIC BP < 90MM HG. 3052F HG A1C>EQUAL 8.0%<EQUAL 9.0%. * Electronic signature of Mishel Kang MD on 05/31/2025 at 09:08 AM EST Sign off status: Pending * Provider: Mishel Kang M.D. Date: 0 08/27/2024 Generated for Percy puga/Sonja/Yuliya on: 1 08/01/2024 09:08 AM EST History and Physical Notes * HPI (History of Present Illness) Category Sub-Category Detail Notes Category Not es Cardiology Short of Breath with exertion Chest Pain Palpitations Dizziness Examination Category Sub-Category Detail Notes Category Not es General Examination HEENT: unremarkable Heart: RSR Lungs: clear to auscultatio n Abdomen: soft and nontender, obese, no organomegaly or masses Extremities: 2+ leg edema, skin i ntact, erythema without open wounds, right leg, lesser erythema of left leg General Appearance: NAD, note weight aga in Skin: Actinic lesions of t he scalp, four lesions, scaling lesion of the right ear. Excoriated lesion of the left upper arm Neurologic Exam: Intact, gait normal Neck: supple, no lymphaden opathy Oral cavity: no lesions, mucosa m oist and WNL, no erythema Peripheral pulses: normal Back: dorsal kyphosis Chest: normal shape and exp ansion
--- OUTSIDE RECORDS SUMMARY | 2024-12-03 05:00 | XMS_ITS ---
Author Organization [facility] Address [address] [facility] [address] [place] [id number] Care Team Providers Care Metal Miner Name Role Phone Mishel Kang Primary Care Provider [phone] Allergies No Known Allergies Results Component Value Reference Range Notes P-Basic Metabolic Panel (BMP ) Reviewed date:01/07/2025 12:37:14 PM Interpretation:Chlor 96, CO2 33, Glu 165 Performing Lab: Notes/Report: Test performed by [facility] [address] [place], [place] [id number] [place] , [place] [address] Salinas Aguila MD, Paving Inspector CLIA: [id number] Sodium 138 135-145 mmol/L Potassium 5.0 3.5-5.3 mmol/L Chloride 96 97-108 mmol/L CO2 33 22-32 mmol/L Glucose 165 65-99 mg/dL BUN 16 8-23 mg/dL Creatinine 0.82 0.70-1.30 mg/dL Calcium 9.3 8.6-10.4 mg/dL eGFR by Creatinine 93 >59 mL/min/1.73m2 P-Hemoglobin A1C Reviewed date:01/07/2025 12:37:14 PM Interpretation:8.3 Performing Lab: Notes/Report: Test performed by [facility] [address] [place], [place] [id number] [place] , [address], [place] [address] Salinas Aguila MD, Paving Inspector CLIA: [id number] Hemoglobin A1C 8.3 <5.7 % The following HbA1c ranges recommended by the [place] [employer] (ADA) may be used as an aid in the diagnosis of diabetes mellitus. HbA1c Suggested Diagnosis >=6.5% Diabetic 5.7% - 6.4% Pre-Diabetic <5.7% Non-Diabetic Estimated Average Glucose Reviewed date:01/07/2025 12:37:14 PM Interpretation:192 Performing Lab: Notes/Report: Test performed by [facility] [address] [facility] , [address], [place] [address] Salinas Aguila MD, Paving Inspector CLIA: [id number] Estimated Average Glucose (eAG) 192 Estimated Average Glucose (eAG) is calculated using the equation eAG = (28.7 x HbA1c) - 46.7 based on the guidelines established by the ADA. If the patient has certain diseases including kidney disease, sickle cell anemia, thalassemia, or is taking medications such as dapsone, erythropoietin, or iron, eAG should not be evaluated. REASON FOR VISIT 3 month check, Needs labs & diabetic eye exam Medications Medication SIG (Take, Route, Frequency, Duration) Notes Start Date End Date Status PreserVision AREDS 2 - as directed Orall y twice a day Active Soliqua 100-33 UNT-MCG/ML inject 21 unit s Subcutaneous once daily 30 day(s); Duration: 30 Active Furosemide 40 MG 1 tab(s) orally once a day; Duration: 30 Active Herminia Allergy 60 MG 1 tab(s) orally 2 times a day Active Carvedilol 3.125 MG 1 tab(s) orally 2 ti mes a day; Duration: 30 days Active Glimepiride 4 mg TAKE ONE TABLET BY MOUTH ONCE DAILY; Duration: 30 Active traZODone HCl 50 mg 1 tablet orally once a day; Duration: 30 days Active Multivitamin 3 TIMES A WEEK No t-Taking Lisinopril-hydroCHLOROthi azide 10-12.5 MG take 1 tab(s) orally once a day for 30 days; Duration: 30 Active metFORMIN HCl ER 500 mg take 2 tab(s) by mouth twice daily for 30 days; Duration: 30 Active Spironolactone 25 mg TAKE 1 tab(s) orall y once a day FOR 30 day(s); Duration: 30 Active Albuterol Sulfate HFA 108 (90 Base) MCG/ACT use 2 inhalations four times daily as needed; Duration: 17 Active Simvastatin 20 mg TAKE 1 tab(s) orally once a day (at bedtime) FOR 30 day(s); Duration: 30 Active Tamsulosin HCl 0.4 mg TAKE 1 cap(s) oral ly twice a day FOR 30 day(s); Duration: 30 Active Triamcinolone Acetonide 0.1 % 1 application Externally Twice a day 12/22/2023 Active Efudex 5 % 1 application Externally once daily 12/22/2023 Active Problems Problem Type SNOMED Code ICD Code Onset Dates Problem Status W/U Status Risk Notes Problem Ischemic cardiomyopathy (647015410) Ischemic cardiomyopathy (I25.5) Active confirmed Problem Type 2 diabetes mellitus with other specified complication, unspecified whether usp insulin use (E11.69) Active confirmed Problem Body mass index 40+ - morbidly obese (873348877) BMI 40.0-44.9, adult (Z68.41) Active confirmed Problem Hypertensive heart failure (90134822) Hypertensive heart disease with heart failure (I11.0) Active confirmed Problem Heart failure (67685794) Heart failure, unspecified HF chronicity, unspecified heart failure type (I50.9) Active confirmed Vital Signs Weight 240.0 lbs 12/03/2024 Blood pressure systolic 140 mm Hg 12/04/19 25 Blood pressure diastolic 80 mm Hg 025 Heart Rate 86 /min 12/03/2024 Height 65 in in 12/03/2024 BMI 39.93 kg/m2 12/03/2024 Encounters Encounter Location Date Provider Diagnosis [facility] [address], [place] [phone] 12/03/2024 Mishel Kang Type 2 diabetes heriberto itus without complications E11.9 ; Ischemic cardiomyopathy I25.5 ; Localized edema R60.0 ; Mixed hyperlipidemia E78.2 ; Type 2 diabetes mellitus with other specified complication, unspecified whether usp insulin use E11.69 ; BMI 40.0-44.9, adult Z68.41 ; Hypertensive heart disease with heart failure I11.0 and Heart failure, unspecified HF chronicity, unspecified heart failure type I50.9 Assessments Encounter Date Diagnosis (ICD Code) Assessment Notes Treatment Notes Treatment Clinical Notes Section Notes 12/03/2024 Type 2 diabetes mellitus without complications (ICD-10 - E11.9) 12/03/2024 Ischemic cardiomyopathy (ICD-10 - I25.5) He needs to get the heart cath. 40-45% EF on echo 12/03/2024 Localized edema (ICD-10 - R60.0) 12/03/2024 Mixed hyperlipidemia (ICD-10 - E78.2) 12/03/2024 Type 2 diabetes mellitus with other specified complication, unspecified whether longwall foreman insulin use (ICD-10 - E11.69) 12/03/2024 BMI 40.0-44.9, adult (ICD-10 - Z68.41) 12/03/2024 Hypertensive heart disease with heart failure (ICD-10 - I11.0) 12/03/2024 Heart failure, unspecified HF chronicity, unspecified heart failure type (ICD-10 - I50.9) Plan Of Treatment Treatment Notes Assessment Notes Ischemic cardiomyopathy He needs to get the heart cath. 40-45% EF on echo Next Appt Details Follow Up: 2 Months, Reason: Provider Name:Mishel Reyes er, 08/19/2025 10:30:00 AM, [address], [address], [place], [place], [phone], Progress Notes * Jose RICODOB:[birth year] (74 yo M)Acc No.[id number]:12/03/2024 Progress Notes Patient: Jose BRADEN Provider: Mishel Kang M.D. :1950 A ge:74 Y S ex:Male Date:12/03/2024 Address:[address] Subjective: * Chief Complaints: * 1 . 3 month check. 2. Needs labs & diabetic eye exam. * HPI: C ardiology: The pt is here for a check up on Hypertension, Hyperlipidemia and Diabetes. Pt states he is doing good and denies any new concerns. Pt is not fasting. Denies : Chest Pain. D enies : [...] History: [facility] * Family History: F ather: , diagnosed with Cancer, Hypertension. M other: , diagnosed with Hypertension, Heart Disease. 2 brother(s) - healthy. . * Social History: C URRENT TOBACCO USE: No . * Medications: T aking PreserVision AREDS 2 - Capsule as directed Orally twice a day , Taking Soliqua 100-33 UNT-MCG/ML Solution Pen-injector inject 21 units Subcutaneous once daily 30 day(s) , Taking Herminia Allergy 60 MG Tablet 1 tab(s) orally 2 times a day , Taking Furosemide 40 MG Tablet 1 [...] four times daily as needed , Taking Tamsulosin HCl 0.4 mg Capsule [...] a day for 30 days , Taking traZODone HCl 50 mg Tablet 1 tablet orally once a day , Taking Glimepiride 4 mg Tablet TAKE ONE TABLET BY MOUTH ONCE DAILY , Not-Taking Multivitamin 3 TIMES A WEEK , Discontinued Cefdinir 300 MG Capsule 1 cap(s) Orally Two times a day , Medication List reviewed and reconciled with the patient * Allergies: N .K.D.A. Objective: * Vitals: W t: 240.0, Temp: 97.5, BP: 140/80, HR: 86, O2 Sat: 97% on RA, Nurse: LUCIO, Ht: 65 in, BMI:39.93. * Examination: G eneral Examination: General Appearance: [...] S kin: A ctinic lesions of the scalp. P eripheral pulses: n ormal . B ack: dorsal kyphosis. E xtremities: 3+ leg edema, skin intact, erythema without open wounds, right leg, lesser erythema of left leg. Assessment: * Assessment: 1. T ype 2 diabetes mellitus without complications - E11.9 (Primary) 2 . I schemic cardiomyopathy - I25.5 3 . L ocalized edema - R60.0 4 .?Mixed hyperlipidemia - E78.2 5 . T ype 2 diabetes mellitus with other specified complication, unspecified whether longwall foreman insulin use - E11.69 6 . B [place] 40.0-44.9, adult - Z68.41 7 . H ypertensive heart disease with heart failure - I11.0 8 . H eart failure, unspecified HF chronicity, unspecified heart failure type - I50.9 Plan: * Treatment: Value Reference Range H emoglobin A1C 8.3 H <5.7 - % * Supriya Luciano 01/08/20 12:37:05 PM EDT > See phone encounter 2.?Ischemic cardiomyopathy?LAB: P-Basic Metabolic Panel (BMP) (Collection Date & Time - 12/03/2024 12:21 PM)?Chlor 96, CO2 33, Glu 165* Value Reference Range B UN 16 8-23 - mg/dL * C alcium 9.3 8.6-10.4 - mg/dL * C hloride 96 L 97-108 - mmol/L * C O2 33 H 22-32 - mmol/L * C reatinine 0.82 0.70-1.30 - mg/dL * G lucose 165 H 65-99 - mg/dL * P otassium 5.0 3.5-5.3 - mmol/L * S odium 138 135-145 - mmol/L * e GFR by Creatinine 93 >59 - mL/min/1.73m2 * Supriya Luciano 01/08/20 12:37:05 PM EDT > See phone encounter Notes: He needs to get the heart cath. 40-45% EF on echo?? * Labs: * L ab: Estimated Average Glucose (Collection Date & Time - 12/03/2024 12:21 PM) 1 92 Value Reference Range E stimated Average Glucose 192 - mg/dL * [facility], IT support 12/04/2024 10:45:06 : This order was created by the Interface. Supriya Luciano 01/07/2025 12:37:05 PM EDT > See phone encounter * Procedure Codes: G 2211 Complex e/m visit add on, 1036F TOBACCO NON-USER, 3052F HG A1C>EQUAL 8.0%<EQUAL 9.0%, G8950 PREHTN/HTN BP DOC INDCD F/U DOC, G8753 MOST RECENT SYSTOLIC BP >= 140MM HG, G8754 MOST RECENT DIASTOLIC BP < 90MM HG, 3017F COLORECTAL CA SCREEN DOC REV * Preventive Medicine: Screening / Special Tests: C olonoscopy C julien:06/19/2022, negative. * Follow Up: 2 Months * Images: Billing Information: * Visit Code: 05701 Office Visit, Est Pt., Level 4. * Procedure Codes: G2211 Complex e/m visit add on. 1036F TOBACCO NON-USER. 3052F HG A1C>EQUAL 8.0%<EQUAL 9.0%. G8950 PREHTN/HTN BP DOC INDCD F/U DOC. G8753 MOST RECENT SYSTOLIC BP >= 140MM HG. G8754 MOST RECENT DIASTOLIC BP < 90MM HG. 3017F COLORECTAL CA SCREEN DOC REV. * Electronic signature of Mishel Kang MD on 05/31/2025 at 09:06 AM EST Sign off status: Pending * Provider: Mishel Kang M.D. Date: 0 12/03/2024 Generated for Printi ng/Faxing/eTransmitting on: 1 08/01/2024 09:06 AM EST History and Physical Notes * HPI (History of Present Illness) Category Sub-Category Detail Notes Category Not es Cardiology Short of Breath Chest Pain Palpitations Dizziness Examination Category Sub-Category Detail Notes Category Not es General Examination HEENT: unremarkable Heart: RSR Lungs: clear to auscultatio n Abdomen: soft and nontender, obese, no organomegaly or masses Extremities: 3+ leg edema, skin i ntact, erythema without open wounds, right leg, lesser erythema of left leg General Appearance: NAD, note weight aga in Skin: Actinic lesions of t he scalp Neurologic Exam: Intact, gait normal Neck: supple, no lymphaden opathy Oral cavity: no lesions, mucosa m oist and WNL, no erythema Peripheral pulses: normal Back: dorsal kyphosis Chest: normal shape and exp ansion
--- OUTSIDE RECORDS SUMMARY | 2025-02-07 05:30 | XMS_ITS ---
Author Organization [facility] Address [address] [facility] [address] [place] [id number] Care Team Providers Care Oracle Ebs Developer Name Role Phone Mishel Kang Primary Care Provider Allergies No Known Allergies Results Component Value Reference Range Notes Glycohemoglobin A1c (in hous e) Reviewed date:02/10/2025 09:05:26 AM Interpretation:8.3% Performing Lab: Notes/Report: 8.3% glycohemoglobin 8.3% 5 - 6.5 % REASON FOR VISIT 2 month check, Needs labs & diabetic eye exam Medications Medication SIG (Take, Route, Frequency, Duration) Notes Start Date End Date Status Soliqua 100-33 UNT-MCG/ML 28 units Subcu taneous daily 02/07/2025 Active Multivitamin 3 TIMES A WEEK No t-Taking Tamsulosin HCl 0.4 mg 1 tablet orally on ce a day; Duration: 30 days Active metFORMIN HCl ER 500 mg 2 tablets orally twice a day; Duration: 30 days Active Simvastatin 20 mg 1 tablet at bedtime orally once a day; Duration: 30 days Active traZODone HCl 50 mg 1 tablet orally once a day; Duration: 30 days Active Lisinopril-hydroCHLOROthi azide 10-12.5 MG 1 tablet Orally Once a day; Duration: 30 days Active BD Pen Needle Candida Ultrafine 32G X 4 MM USE DIRECTED. 30; Duration: 30 Active Spironolactone 25 mg 1 tablet orally onc e a day; Duration: 30 days Active Glimepiride 4 mg TAKE ONE TABLET BY MOUTH ONCE DAILY; Duration: 30 Active Albuterol Sulfate HFA 108 (90 Base) MCG/ACT use 2 inhalations four times daily as needed; Duration: 17 Active Efudex 5 % 1 application Externally once daily 12/22/2023 Active Triamcinolone Acetonide 0.1 % 1 application Externally Twice a day 12/22/2023 Active Carvedilol 3.125 MG 1 tab(s) orally 2 ti mes a day; Duration: 30 days Active Furosemide 40 MG 1 tab(s) orally once a day; Duration: 30 Active PreserVision AREDS 2 - as directed Orall y twice a day Active Herminia Allergy 60 MG 1 tab(s) orally 2 times a day Active Vital Signs Weight 239.6 lbs 02/07/2025 Blood pressure systolic 126 mm Hg 02/08/20 25 Blood pressure diastolic 78 mm Hg 025 Heart Rate 87 /min 02/07/2025 Height 65 in in 02/07/2025 BMI 39.87 kg/m2 02/07/2025 Encounters Encounter Location Date Provider Diagnosis [facility] [address] [facility] [address] [place], [place] [id number] 02/07/2025 Mishel Kang Localized edema R60. 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 02/07/2025 Type 2 diabetes mellitus with other specified complication, unspecified whether termite exterminator insulin use (ICD-10 - E11.69) 02/07/2025 prison (current) use of insulin (ICD-10 - Z79.4) 02/07/2025 Heart failure, unspecified HF chronicity, unspecified heart failure type (ICD-10 - I50.9) Plan Of Treatment Medication Medication Name Sig Start Date Stop Date Notes Soliqua 100-33 UNT-MCG/ML 28 units Subcutaneous daily 01/15 Soliqua 100-33 UNT-MCG/ML 23 units Subcu taneous daily; Duration: 30 days Treatment Notes Assessment Notes Localized edema Extra dose of Furose mide recommended for today. Next Appt Details Follow Up: 2 Months, Reason: Provider Name:Mishel Reyes er, 08/19/2025 10:30:00 AM, [address], [address], [place], [place], [id number], Progress Notes * Jose RICODOB:[birth year] (74 yo M)Acc No.[id number]:02/07/2025 Progress Notes Patient: Jose BRADEN Provider: Mishel Kang M.D. :1950 A ge:74 Y S ex:Male Date:02/07/2025 Address:[place] [id number] Subjective: * Chief Complaints: * 1 . 2 month check. 2. Needs labs & diabetic eye exam. * HPI: H PI: 74 year old male presents with c/o Patient is here today for?Pt is here today for a 2 month check up. Pt sts he is doing well and has no concerns at this time. * ROS: D ERMATOLOGY: no R mena. n o H thad. G ASTROENTEROLOGY: no N ausea. n o V omiting. n o D iarrhea.? U ROLOGY: no D ifficulty urinating. n o B lood in urine. * Medical History: T ype 2 Diabetes, Hypertension, Benign Prostatic Hyperplasia, Hyperlipidemia. * Surgical History: T onsillectomy , Right Irridectomy, Dr. Leon, [facility] eye 01/02/2024. * Family History: F ather: , diagnosed with Cancer, Hypertension. M other: , diagnosed with Hypertension, Heart Disease. 2 brother(s) - healthy. . * Social History: C URRENT TOBACCO USE: No . * Medications: T aking PreserVision AREDS 2 - Capsule as directed Orally twice a day , Taking Herminia Allergy 60 MG Tablet [...] four times daily as needed , Taking Glimepiride 4 mg Tablet TAKE ONE TABLET BY MOUTH ONCE DAILY , Taking Soliqua 100-33 UNT-MCG/ML Solution Pen-injector 23 units Subcutaneous daily , Taking BD Pen Needle Candida Ultrafine 32G X 4 MM Miscellaneous USE DIRECTED. 30 , Taking Spironolactone 25 mg Tablet 1 tablet orally once a day , Taking traZODone HCl 50 mg Tablet 1 tablet orally once a day , Taking Lisinopril- hydroCHLOROthiazide 10-12.5 MG Tablet 1 tablet Orally Once a day , Taking Simvastatin 20 mg Tablet 1 tablet at bedtime orally once a day , Taking metFORMIN HCl ER 500 mg Tablet Extended Release 24 Hour 2 tablets orally twice a day , Taking Tamsulosin HCl 0.4 mg Capsule 1 tablet orally once a day , Not-Taking Multivitamin 3 TIMES A WEEK , Medication List reviewed and reconciled with the patient * Allergies: N .K.D.A. Objective: * Vitals: W t: 239.6, Temp: 97.7, BP: 126/78, HR: 87, O2 Sat: 92% on RA, Nurse: joselin, Ht: 65 in, BMI:39.87. * Examination: G eneral Examination: General Appearance: N AD, note weight again. H EENT:?unremarkable. 3mm raised keratinized lesion of the left pinna. O ral cavity: n o lesions, mucosa moist and WNL, no erythema. N nel: s upple, no lymphadenopathy. C hest: normal shape and expansion. H eart: R SR. L ungs: s ome scattered wheezes. A bdomen: soft and nontender, obese, no organomegaly or masses. N eurologic Exam: I ntact, gait normal. S kin: A ctinic lesions of the scalp. P eripheral pulses: n ormal . Back: dorsal kyphosis. E xtremities: 3 + leg edema, erythema with some excoriations. Assessment: * Assessment: 1. T ype 2 diabetes mellitus with other specified complication, unspecified whether termite exterminator insulin use - E11.69 (Primary) 2 . L ocalized edema - R60.0 3 .?prison (current) use of insulin - Z79.4 4 . H eart failure, unspecified HF chronicity, unspecified heart failure type - I50.9 Plan: * Treatment: Value Reference Range g lycohemoglobin 8.3% 5 - 6.5 % * Annia Tian 02/07/2025 11:3 0:14 AM EDT > Provider reviewed results while patient in office. 2.?Localized edema? Notes: Extra dose of Furosemide recommended for today.?? * Procedure Codes: G 2211 Complex e/[place], [address] CAPILLARY BLOOD DRAW, 32785 GLYCATED HEMOGLOBIN TEST, Modifiers: QW , 3052F HG A1C>EQUAL 8.0%<EQUAL 9.0%, 1036F TOBACCO NON- USER, G8783 BP SCR PRFRM RCMDD DEFIND SCR INTVL, G8752 MOST RECENT SYSTOLIC BP < 140MM HG, G8754 MOST RECENT DIASTOLIC BP < 90MM HG * Follow Up: 2 Months * Images: Billing Information: * Visit Code: 48191 Office Visit, Est Pt., Level 4. * Procedure Codes: G2211 Complex e/[place]. [address] CAPILLARY BLOOD DRAW. 44668 GLYCATED HEMOGLOBIN TEST. Modifiers: QW 3052F HG A1C>EQUAL 8.0%<EQUAL 9.0%. 1036F TOBACCO NON-USER. G8783 BP SCR PRFRM RCMDD DEFIND SCR INTVL. G8752 MOST RECENT SYSTOLIC BP < 140MM HG. G8754 MOST RECENT DIASTOLIC BP < 90MM HG. * Electronic signature of Mishel Kang MD on 05/31/2025 at 09:07 AM EST Sign off status: Pending * Provider: Mishel Kang M.D. Date: 0 02/07/2025 Generated for Percy puga/Sonja/eTransmitting on: 1 08/01/2024 09:07 AM EST History and Physical Notes * HPI (History of Present Illness) Category Sub-Category Detail Notes Category Not es HPI Patient is here today for Pt is here today for a 2 month check up. Pt sts he is doing well and has no concerns at this time Examination Category Sub-Category Detail Notes Category Not es General Examination HEENT: unremarkable . 3mm raised keratinized lesion of the left pinna Heart: RSR Lungs: some scattered wheez es Abdomen: soft and nontender, obese, no organomegaly or masses Extremities: 3+ leg edema, erythe ma with some excoriations General Appearance: NAD, note weight aga in Skin: Actinic lesions of t he scalp Neurologic Exam: Intact, gait normal Neck: supple, no lymphaden opathy Oral cavity: no lesions, mucosa m oist and WNL, no erythema Peripheral pulses: normal Back: dorsal kyphosis Chest: normal shape and exp ansion
--- OUTSIDE RECORDS SUMMARY | 2025-04-18 04:45 | XMS_ITS ---
Author Organization [facility] Address [address] [facility] [address] [place] [phone] Care Team Providers Care Equipment Processer Storage Name Role Phone Mishel Kang Primary Care Provider Joel Hopkins Unavailable [phone] Allergies No Known Allergies Results Component Value Reference Range Notes CBC Venipuncture (in house) Reviewed date:04/19/2025 12:16:49 PM Interpretation:Normal Performing Lab: Notes/Report: Normal wbc 8.3 3.5 - 10 lymph 6.6% 15 - 50 mid 6.9% 2 - 15 gran 86.5% 35 - 80 rbc 4.90 3.5 - 5.5 hgb 14.2 11.5 - 16.5 hct 43.0 35 - 55 mcv 87.6 75 - 100 mch 29.1 25 - 35 mchc 33.2 31 - 38 platlet 218 100 - 400 P-Basic Metabolic Panel (BMP ) Reviewed date:04/19/2025 12:16:49 PM Interpretation:Glu 237 Performing Lab: Notes/Report: Test performed by [facility], [employer] [facility] [place] [facility] , [address], [place] [address] Salinas Aguila MD, Food Counter Attendant CLIA: [id number] Sodium 141 135-145 mmol/L Potassium 4.6 3.5-5.3 mmol/L Chloride 98 97-108 mmol/L CO2 32 20-32 mmol/L Glucose 237 65-99 mg/dL BUN 17 8-23 mg/dL Creatinine 0.98 0.70-1.30 mg/dL Calcium 9.5 8.6-10.4 mg/dL eGFR by Creatinine 82 >59 mL/min/1.73m2 REASON FOR VISIT cellulitis in thigh Medications Medication SIG (Take, Route, Frequency, Duration) Notes Start Date End Date Status Soliqua 100-33 UNT-MCG/ML 32 units Subcu taneous daily 02/07/2025 Active Glimepiride 4 mg 1 tablet orally once a day; Duration: 30 days Active BD Pen Needle Candida Ultrafine 32G X 4 MM USE DIRECTED. 30; Duration: 30 Active Albuterol Sulfate HFA 108 (90 Base) MCG/ACT use 2 inhalations four times daily as needed; Duration: 17 Active Triamcinolone Acetonide 0.1 % 1 application Externally Twice a day 12/22/2023 Active Carvedilol 3.125 MG 1 tab(s) orally 2 ti mes a day; Duration: 30 days Active Furosemide 40 MG 1 tab(s) orally once a day; Duration: 30 Active Herminia Allergy 60 MG 1 tab(s) orally 2 times a day Active PreserVision AREDS 2 - as directed Orall y twice a day Active Efudex 5 % 1 application Externally once daily 12/22/2023 Active Plavix 75 MG 1 tablet Orally Once a day Active Simvastatin 20 mg take 1 tablet at bedtime orally once a day; Duration: 30 Active metFORMIN HCl ER 500 mg take 2 tablets o rally twice a day; Duration: 30 Active Multivitamin 3 TIMES A WEEK No t-Taking Lisinopril-hydroCHLOROthi azide 10-12.5 MG take 1 tablet Orally Once a day; Duration: 30 Active Tamsulosin HCl 0.4 mg take 1 capsule ora lly once a day; Duration: 30 Active Cephalexin 500 MG 1 capsule Orally twi ce a day; Duration: 7 days 04/18/2025 Active Spironolactone 25 mg take 1 tablet orall y once a day; Duration: 30 Active traZODone HCl 50 mg take 1 tablet orally once a day; Duration: 30 Active Vital Signs Weight 240.2 lbs 04/18/2025 Blood pressure systolic 132 mm Hg 04/18/20 25 Blood pressure diastolic 74 mm Hg 025 Heart Rate 104 /min 04/18/2025 Height 65 in in 04/18/2025 BMI 39.97 kg/m2 04/18/2025 Encounters Encounter Location Date Provider Diagnosis [facility] [address] [facility] [place] [id number] 04/18/2025 [place] Peripheral edema R60 .0 and Cellulitis of lower extremity, unspecified laterality L03.119 Assessments Encounter Date Diagnosis (ICD Code) Assessment Notes Treatment Notes Treatment Clinical Notes Section Notes 04/18/2025 Peripheral edema (ICD-10 - R60.0) 04/18/2025 Cellulitis of lower extremity, unspecified laterality (ICD-10 - L03.119) Patient seems to have a mixture of stasis dermatitis and cellulitis Plan Of Treatment Medication Medication Name Sig Start Date Stop Date Notes Cephalexin 500 MG 1 capsule Orally twi ce a day; Duration: 7 days 04/18/2025 Treatment Notes Assessment Notes Cellulitis of lower extremit y, unspecified laterality Patient seems to have a mixture of stasi s dermatitis and cellulitis Next Appt Details Follow Up: via phone to repo rt progress, Reason: Provider Name:Mishel Reyes er, 08/19/2025 10:30:00 AM, [address] [facility], [address] , [place], [place], [id number], Progress Notes * Jose RICODOB:[birth year] (74 yo M)Acc No.[id number]:04/18/2025 Progress Notes Patient: Jose BRADEN Provider: Aleena Hopkins M.D. :1950 A ge:74 Y S ex:Male Date:04/18/2025 Address:[place] [address] Pcp:Mishel Kang Subjective: * Chief Complaints: * 1 . Cellulitis in thigh. * HPI: D ermatology: 74 year old male presents with c/o Cellulitis P t here today for Cellulitis on both legs from the knee down. Pt states this started about two days ago. Pt states he has tried compression socks and his legs are still swollen. Pt states his legs are red and bledding. Pt states the left leg is a little warm to the touch. * Medical History: T ype 2 Diabetes, Hypertension, Benign Prostatic Hyperplasia, Hyperlipidemia. * Surgical History: T onsillectomy , Right Irridectomy, Dr. Leon, [facility] 01/02/2024. * Hospitalization/Major Diagno stic Procedure: D enies Past Hospitalization. * Family History: F ather: , diagnosed with Cancer, Hypertension. M other: , diagnosed with Hypertension, Heart Disease. 2 brother(s) - healthy. . * Social History: C URRENT TOBACCO USE: No . * Medications: T aking Plavix 75 MG Tablet 1 tablet Orally Once a day , Taking PreserVision AREDS 2 - Capsule as directed [...] four times daily as needed , Taking BD Pen Needle Candida Ultrafine 32G X 4 MM Miscellaneous USE DIRECTED. 30 , Taking Glimepiride 4 mg Tablet 1 tablet orally once a day , Taking Soliqua 100-33 UNT- MCG/ML Solution Pen-injector 32 units Subcutaneous daily , Taking Tamsulosin HCl 0.4 mg Capsule take 1 capsule orally once a day , Taking traZODone HCl 50 mg Tablet take 1 tablet orally once a day , Taking Spironolactone 25 mg Tablet take 1 tablet orally once a day , Taking metFORMIN HCl ER 500 mg Tablet Extended Release 24 Hour take 2 tablets orally twice a day , Taking Simvastatin 20 mg Tablet take 1 tablet at bedtime orally once a day , Taking Lisinopril-hydroCHLOROthiazide 10-12.5 MG Tablet take 1 tablet Orally Once a day , Not-Taking Multivitamin 3 TIMES A WEEK , Medication List reviewed and reconciled with the patient * Allergies: N .K.D.A. Objective: * Vitals: W t: 240.2, Temp: 97.9, BP: 132/74, HR: 104, Nurse: KANE, Ht: 65 in, BMI:39.97. * Examination: G eneral Examination: General Appearance: N AD. S kin: c onfluent dull skin redness over both lower legs. E xtremities: 1 + bilateral lower leg edema. ? Assessment: * Assessment: 1. P eripheral edema - R60.0 (Primary) 2 . C ellulitis of lower extremity, unspecified laterality - L03.119 Plan: * Treatment: Value Reference Range B UN 17 8-23 - mg/dL * C alcium 9.5 8.6-10.4 - mg/dL * C hloride 98 97-108 - mmol/L * C O2 32 20-32 - mmol/L * C reatinine 0.98 0.70-1.30 - mg/dL * G lucose 237 H 65-99 - mg/dL * P otassium 4.6 3.5-5.3 - mmol/L * S odium 141 135-145 - mmol/L * e GFR by Creatinine 82 >59 - mL/min/1.73m2 * Sonia Davidson 04/19/2025 12: 16:42 PM EST > See phone encounter 2.?Cellulitis of lower extremity, unspecified laterality? Start Cephalexin Capsule, 500 MG, 1 capsule, Orally, twice a day, 7 days, 14 Capsule, Refills 0. ?LAB: CBC Venipuncture (in house) (Collection Date & Time - 04/18/2025)? Normal* Value Reference Range w bc 8.3 3.5 - 10 * l ymph 6.6% 15 - 50 * m id 6.9% 2 - 15 * g ran 86.5% 35 - 80 * r bc 4.90 3.5 - 5.5 * h gb 14.2 11.5 - 16.5 * h ct 43.0 35 - 55 * m cv 87.6 75 - 100 * m ch 29.1 25 - 35 * m chc 33.2 31 - 38 * p latlet 218 100 - 400 * Rose Marie Barfield 04/18/2025 11: 28:57 AM EST > Sonia Davidson 04/19/2025 12:16:42 PM EST > See phone encounter Notes: Patient seems to have a mixture of stasis dermatitis and cellulitis?? * Procedure Codes: G 2211 Complex e/[place], [address] CBC WITH AUTO DIFF, 1036F TOBACCO NON-USER, G8783 BP SCR PRFRM RCMDD DEFIND SCR INTVL, G8752 MOST RECENT SYSTOLIC BP < 140MM HG, G8754 MOST RECENT DIASTOLIC BP < 90MM HG, 3075F SYST BP GE 130 - 139MM HG, 3078F DIAST BP < 80 MM HG * Follow Up: v ia phone to report progress * Images: Billing Information: * Visit Code: 69540 Office Visit, Est Pt., Level 3. * Procedure Codes: G2211 Complex e/[place]. [address] CBC WITH AUTO DIFF. 1036F TOBACCO NON-USER. G8783 BP SCR PRFRM RCMDD DEFIND SCR INTVL. G8752 MOST RECENT SYSTOLIC BP < 140MM HG. G8754 MOST RECENT DIASTOLIC BP < 90MM HG. 3075F SYST BP GE 130 - 139MM HG. 3078F DIAST BP < 80 MM HG. * Electronic signature of Suyapa Hopkins MD on 05/31/2025 at 09:08 AM EST Sign off status: Pending * Provider: Aleena Hopkins M.D. Date: 06/18/2024 Generated for Percy puga/Sonja/Lorenasmitting on: 08/01/2024 09:08 AM EST History and Physical Notes * HPI (History of Present Illness) Category Sub-Category Detail Notes Category Not es Dermatology Cellulitis Pt here today fo r Cellulitis on both legs from the knee down. Pt states this started about two days ago. Pt states he has tried compression socks and his legs are still swollen. Pt states his legs are red and bledding. Pt states the left leg is a little warm to the touch Examination Category Sub-Category Detail Notes Category Not es General Examination Extremities: 1+ bilateral lower le g edema General Appearance: NAD Skin: confluent dull skin redness over both lower legs
--- OUTSIDE RECORDS SUMMARY | 2025-05-20 05:30 | XMS_ITS ---
[facility] Address [address] [facility] [address] [place] [id number] Care Team Providers Care Motor Vehicle License Clerk Name Role Phone Mishel Kang Primary Care Provider Allergies No Known Allergies Results Component Value Reference Range Notes Glycohemoglobin A1c (in hous e) Reviewed date:05/23/2025 03:04:31 PM Interpretation: Performing Lab: Notes/Report: glycohemoglobin 8.3% 5 - 6.5 % P-Comprehensive Metabolic Pa mau (CMP) Reviewed date:05/26/2025 11:10:55 AM Interpretation:K 5.8, Chl 96, CO2 34, Glu 148 Performing Lab: Notes/Report: Test performed by [facility] [address] [place] [address] , [address], [place] [address] Elise Han MD, PhD, [facility], Patient Registration Specialist CLIA: [id number] Sodium 138 135-145 mmol/L Potassium 5.8 3.5-5.3 mmol/L Chloride 96 97-108 mmol/L CO2 34 20-32 mmol/L Glucose 148 65-99 mg/dL BUN 16 8-23 mg/dL Creatinine 0.85 0.70-1.30 mg/dL Calcium 9.6 8.6-10.4 mg/dL eGFR by Creatinine 92 >59 mL/min/1.73m2 Protein 6.7 6.0-8.3 g/dL Albumin 4.5 3.5-5.3 g/dL Alkaline Phosphatase 100 44-138 IU/L ALT (SGPT) 18 <5-55 IU/L AST (SGOT) 17 <5-46 IU/L Bilirubin, Total 0.4 <0.2-1.2 mg/dL A/G Ratio 2.0 1.1-2.5 P-Lipid Panel Reviewed date:05/26/2025 11:10:55 AM Interpretation:Trigs 154 Performing Lab: Notes/Report: Test performed by [facility] [address] [place] [address] , [address], [place] [address] Elise Han MD, PhD, [facility], Patient Registration Specialist CLIA: [id number] Lipid Panel Footnote See Below *Based on optimal reference values. Please refer to the DOS for additional information regarding diagnostic lipid reference ranges, patient management based on the recently updated lipid guidelines ([place] [employer]/[place] [employer] Task Force on Clinical Practice Guidelines (2018), and pediatric diagnostic lipid reference values (<18 years old). Total Cholesterol 118 <200 mg/dL Triglycerides 154 <150 mg/dL HDL Cholesterol 45 >40 mg/dL Total Cholesterol / HDL Ratio* 2.62 <4.99 Rati o Non-HDL Cholesterol 73 <130 mg/dL LDL Cholesterol (Calculation) 42 <100 mg/dL LDL / HDL Ratio* 0.94 <2.49 Ratio LDL Cholesterol Patient History Test Date: 03/26/2024 LDL Results: 41 Units: mg/dL % Change: - Test Date: 05/20/2025 LDL Results: 42 Units: mg/dL % Change: +2% REASON FOR VISIT 2 months, urine check, Needs labs with PSA, colon cancer screening, diabetic eye exam, & flu vaccine Medications Medication SIG (Take, Route, Frequency, Duration) Notes Start Date End Date Status Multivitamin 3 TIMES A WEEK No t-Taking Lisinopril-hydroCHLOROthi azide 10-12.5 MG take 1 tablet Orally Once a day; Duration: 30 Active Glimepiride 4 mg take 1 tablet orally once a day; Duration: 30 Active Tamsulosin HCl 0.4 mg take 1 capsule ora lly once a day; Duration: 30 Active traZODone HCl 50 mg take 1 tablet orally once a day; Duration: 30 Active Spironolactone 25 mg take 1 tablet orall y once a day; Duration: 30 Active metFORMIN HCl ER 500 mg take 2 tablets o rally twice a day; Duration: 30 Active Simvastatin 20 mg take 1 tablet at bedtime orally once a day; Duration: 30 Active Triamcinolone Acetonide 0.1 % 1 application Externally Twice a day 12/22/2023 Active Albuterol Sulfate HFA 108 (90 Base) MCG/ACT use 2 inhalations four times daily as needed; Duration: 17 Active Soliqua 100-33 UNT-MCG/ML 32 units Subcu taneous daily 02/07/2025 Active Carvedilol 3.125 MG 1 tab(s) orally 2 ti mes a day; Duration: 30 days Active Efudex 5 % 1 application Externally once daily 12/22/2023 Active Plavix 75 MG 1 tablet Orally Once a day Active PreserVision AREDS 2 - as directed Orall y twice a day Active Herminia Allergy 60 MG 1 tab(s) orally 2 times a day Active Furosemide 40 MG 1 tab(s) orally once a day; Duration: 30 Active Vital Signs Weight 238.2 lbs 05/20/2025 Blood pressure systolic 132 mm Hg 05/20/20 25 Blood pressure diastolic 72 mm Hg 025 Heart Rate 90 /min 05/20/2025 Height 65 in in 05/20/2025 BMI 39.63 kg/m2 05/20/2025 Encounters Encounter Location Date Provider Diagnosis [facility] [address] [facility] [address] [place], [place] [id number] 05/20/2025 Mishel Kang Essential hypertensi on I10 ; Benign prostatic hyperplasia with lower urinary tract symptoms N40.1 ; Localized edema R60.0 ; 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 ; Type 2 diabetes mellitus with other specified complication, unspecified whether intermediate insulin use E11.69 ; Mixed hyperlipidemia E78.2 and Actinic keratosis L57.0 Assessments Encounter Date Diagnosis (ICD Code) Assessment Notes Treatment Notes Treatment Clinical Notes Section Notes 05/20/2025 Essential hypertension (ICD-10 - I10) 05/20/2025 Benign prostatic hyperplasia with lower urinary tract symptoms (ICD-10 - N40.1) 05/20/2025 Localized edema (ICD-10 - R60.0) 05/20/2025 bed bug exterminator (current) use of insulin (ICD-10 - Z79.4) 05/20/2025 Type 2 diabetes mellitus with other specified complication, unspecified whether longshore equipment operator insulin use (ICD-10 - E11.69) 05/20/2025 Mixed hyperlipidemia (ICD-10 - E78.2) 05/20/2025 Actinic keratosis (ICD-10 - L57.0) Plan Of Treatment Next Appt Details Follow Up: 3 Months, Reason: Provider Name:Mishel Reyes , 08/19/2025 10:30:00 AM, [address], [address], [place], [place], [id number], Procedure Notes * Category Sub-Category Detail Notes Cryotherapy Benign Lesion Method: [place] h LL 100 used to freeze and refreeze the lesion of the right pinna Progress Notes * Jose RICODOB:[birth year] (74 yo M)Acc No.[id number]:05/20/2025 Progress Notes Patient: Jose BRADEN Provider: Mishel Kang M.D. :1950 A ge:74 Y S ex:Male Date:05/20/2025 Address:[address], [place], [place] Subjective: * Chief Complaints: * 1 . 2 months, urine check. 2. Needs labs with PSA, colon cancer screening, diabetic eye exam, & flu vaccine. * HPI: D ermatology: The pt is here for a follow up on lower extremity edema and cellulitis. Pt states the right leg is doing better but the left leg has a tender spot still. Pt states he has a skin lesion on his scalp he would like checked out today. 74 year old male presents with c/o skin lesion. C ardiology: The pt is here for a check up on Hypertension and Diabetes. Pt states he is fasting. Denies : Chest Pain. D enies : Short of Breath. D enies : Dizziness. D enies : Palpitations. * ROS: C ONSTITUTIONAL: Positive for A nother physician seen since last visit?Yes, Change in medication since last visit? Yes, Are you taking antibiotics? No, Are you taking steroids? No. D ERMATOLOGY: no R mena. n o H thad. G ASTROENTEROLOGY: no N ausea. n o V omiting. n o D iarrhea.? U ROLOGY: no D ifficulty urinating. n o B lood in urine. * Medical History: T ype 2 Diabetes, Hypertension, Benign Prostatic Hyperplasia, Hyperlipidemia. * Surgical History: T onsillectomy , Right Irridectomy, Dr. Leon, [facility] 01/02/2024. * Family History: F ather: [...] four times daily as needed , Taking Soliqua 100-33 UNT-MCG/ML Solution Pen-injector 32 units Subcutaneous daily , [...] bedtime orally once a day , Taking Lisinopril- hydroCHLOROthiazide 10-12.5 MG Tablet take 1 tablet Orally Once a day , Taking Glimepiride 4 mg Tablet take 1 tablet orally once a day , Not-Taking Multivitamin 3 TIMES A WEEK , Discontinued Cephalexin 500 MG Capsule 1 capsule Orally twice a day , Discontinued levoFLOXacin 500 MG Tablet 1 tablet Orally Once a day , Medication List reviewed and reconciled with the patient * Allergies: N .K.D.A. Objective: * Vitals: W t: 238.2, Temp: 98.2, BP: 132/72, HR: 90, O2 Sat: 96% on RA, Nurse: LUCIO, Ht: 65 in, BMI:39.63. * Examination: G eneral Examination: General Appearance: N AD, note weight again. H EENT:?unremarkable. 3mm raised keratinized lesion of the right pinna. O ral cavity: n o lesions, [...] . B ack: dorsal kyphosis. E xtremities: 3 + leg edema, erythema with some excoriations on the left. Assessment: * Assessment: 1. E ssential hypertension - I10 (Primary) 2 . B enign prostatic hyperplasia with lower urinary tract symptoms - N40.1 3 . L ocalized edema - R60.0 ? 4 . L adela term (current) use of insulin - Z79.4 5 . T ype 2 diabetes mellitus with other specified complication, unspecified whether longshore equipment operator insulin use - E11.69? 6. M ixed hyperlipidemia - E78.2 7 . A ctinic keratosis - L57.0 Plan: * Treatment: Value Reference Range g lycohemoglobin 8.3% 5 - 6.5 % * Debbie Ann 05/20/2025 11 :10:43 AM EST > Provider reviewed results while patient in office. 2.?Mixed hyperlipidemia?LAB: P-Comprehensive Metabolic Panel (CMP) (Collection Date & Time - 05/20/2025 12:25 PM)?K 5.8, Chl 96, CO2 34, Glu 148* Value Reference Range A /G Ratio 2.0 1.1-2.5 - * A lbumin 4.5 3.5-5.3 - g/dL * A lkaline Phosphatase 100 44-138 - IU/L * A LT (SGPT) 18 <5-55 - IU/L * A ST (SGOT) 17 <5-46 - IU/L * B ilirubin, Total 0.4 <0.2-1.2 - mg/dL * B UN 16 8-23 - mg/dL * C alcium 9.6 8.6-10.4 - mg/dL * C hloride 96 L 97-108 - mmol/L * C O2 34 H 20-32 - mmol/L * C reatinine 0.85 0.70-1.30 - mg/dL * G lucose 148 H 65-99 - mg/dL * P otassium 5.8 H 3.5-5.3 - mmol/L * S odium 138 135-145 - mmol/L * P rotein 6.7 6.0-8.3 - g/dL * e GFR by Creatinine 92 >59 - mL/min/1.73m2 * Sonia Davidson 05/26/2025 11 :10:40 AM EST > See phone encounter ?LAB: P-Lipid Panel (Collection Date & Time - 05/20/2025 12:25 PM)?Trigs 154 * Value Reference Range C holesterol / HDL Ratio 2.62 <4.99 - Ratio * C holesterol 118 <200 - mg/dL * H DL Cholesterol 45 >40 - mg/dL * L DL Cholesterol (Calculation) 42 <100 - mg/d L * L DL/HDL Ratio 0.94 <2.49 - Ratio * N on-HDL Cholesterol 73 <130 - mg/dL * T riglycerides 154 H <150 - mg/dL * L ipid Panel Footnote See Below - * Sonia Davidson 05/26/2025 11 :10:40 AM EST > See phone encounter * Procedures: C ryotherapy Benign Lesion: Method: W allach LL 100 used to freeze and refreeze the lesion of the right pinna. * Procedure Codes: G 2211 Complex e/[place], [address] DESTRUCTION BENIGN LESION, CRYOSURGERY,ELECTROSURGERY FIRST LESION, 70309 GLYCATED HEMOGLOBIN TEST, Modifiers: QW , 49239 VENIPUNCT, ROUTINE*, 3052F HG A1C>EQUAL 8.0%<EQUAL 9.0%, G8950 PREHTN/HTN BP DOC INDCD F/U DOC, G8752 MOST RECENT SYSTOLIC BP < 140MM HG, G8754 MOST RECENT DIASTOLIC BP < 90MM HG, 3075F SYST BP GE 130 - 139MM HG, 3078F DIAST BP < 80 MM HG * Follow Up: 3 Months * Images: Billing Information: * Visit Code: 91556 Office Visit, Est Pt., Level 4. Modifiers: 25 * Procedure Codes: G2211 Complex e/[place]. [address] DESTRUCTION BENIGN LESION, CRYOSURGERY,ELECTROSURGERY FIRST LESION. 98749 GLYCATED HEMOGLOBIN TEST. Modifiers: QW 02500 VENIPUNCT, ROUTINE*. 3052F HG A1C>EQUAL 8.0%<EQUAL 9.0%. G8950 PREHTN/HTN BP DOC INDCD F/U DOC. G8752 MOST RECENT SYSTOLIC BP < 140MM HG. G8754 MOST RECENT DIASTOLIC BP < 90MM HG. 3075F SYST BP GE 130 - 139MM HG. 3078F DIAST BP < 80 MM HG. * Electronic signature of Mishel Kang MD on 05/31/2025 at 09:07 AM EST Sign off status: Pending * Provider: Mishel Kang M.D. Date: 07/21/2024 Generated for Percy puga/Sonja/eTransmitting on: 1 08/01/2024 09:07 AM EST History and Physical Notes * HPI (History of Present Illness) Category Sub-Category Detail Notes Category Not es Dermatology skin lesion Cardiology Short of Breath Chest Pain Palpitations Dizziness Examination Category Sub-Category Detail Notes Category Not es General Examination HEENT: unremarkable . 3mm raised keratinized lesion of the right pinna Heart: RSR Lungs: some scattered wheez es Abdomen: soft and nontender, obese, no organomegaly or masses Extremities: 3+ leg edema, erythe ma with some excoriations on the left General Appearance: NAD, note weight aga in Skin: Actinic lesions of t he scalp Neurologic Exam: Intact, gait normal Neck: supple, no lymphaden opathy Oral cavity: no lesions, mucosa m oist and WNL, no erythema Peripheral pulses: normal Back: dorsal kyphosis Chest: normal shape and exp ansion
--- OUTSIDE RECORDS SUMMARY | 2025-05-31 09:07 | XMS_ITS | Clinical Summary ---
Author Organization Healthcare Address [address] [place] [address] Care Team Providers Care Searchlight Operator Name Role Phone Brandon Lee MD Primary Care Provider [phone] Family History Medical History Relation Name Comments [...] 2002 [facility]-Zoster Vaccines (1 of 2) 2002 ZNO-NOVSH-26 Vaccine (1 - 20 25-26 season) 2025 [facility]-Influenza Vaccine (#1) 2025 [facility]-RSV Vaccine: 60+ Years o r (1 - 1-dose 75+ series) 2027 HPV Vaccines (No Doses Required) Completed [facility]-HIB Vaccines Aged Out No longer e [...] this topic Insurance [employer] MEDIC[employer] Care Teams Searchlight Operator Relationship Specialty Start Date End Date Brandon Lee MD [id number] [phone] PCP - General 10/27/20
--- OUTSIDE RECORDS SUMMARY | 2025-05-31 09:07 | XMS_ITS | Patient Health Record ---
[facility] [address] [facility] [address] [place] [id number] Care Team Providers Care Sexual Assault Counsellor Name Role Phone Jorge Luis Mishel YapJono Primary Care Provider Joel Hopkins Unavailable [phone] Allergies No Known Allergies Results Component Value Reference Range Notes P-Basic Metabolic Panel (BMP ) Reviewed date:04/19/2025 12:16:49 PM Interpretation:Glu 237 Performing Lab: Notes/Report: CLIA: [id number] Salinas Aguila MD, Rail Car [employer] [address] [place] [address] , [address], [place] [address] Test performed by [facility] Sodium 141 135-145 mmol/L Potassium 4.6 3.5-5.3 mmol/L Chloride 98 97-108 mmol/L CO2 32 20-32 mmol/L Glucose 237 65-99 mg/dL BUN 17 8-23 mg/dL Creatinine 0.98 0.70-1.30 mg/dL Calcium 9.5 8.6-10.4 mg/dL eGFR by Creatinine 82 >59 mL/min/1.73m2 CBC Venipuncture (in house) Reviewed date:04/19/2025 12:16:49 [...] - 38 platlet 218 100 - 400 P-Hemoglobin A1C Reviewed date:01/07/2025 12:37:14 PM Interpretation:8.3 Performing Lab: Notes/Report: CLIA: [id number] Salinas Aguila MD, Rail Car Repairman [address] [place] [address] [address], [place] [address] Test performed by [facility] Hemoglobin A1C 8.3 <5.7 % The following HbA1c ranges recommended by the [place] [employer] (ADA) may be used as an aid in the diagnosis of diabetes mellitus. HbA1c Suggested Diagnosis >=6.5% Diabetic 5.7% - 6.4% Pre-Diabetic <5.7% Non-Diabetic P-Basic Metabolic Panel (BMP ) Reviewed date:01/07/2025 12:37:14 PM Interpretation:Chlor 96, CO2 33, Glu 165 Performing Lab: Notes/Report: Test performed by [facility] [address] [place] [address] , [address], [place] [address] Salinas Aguila MD, Rail Car Repairman CLIA: [id number] Sodium 138 135-145 mmol/L Potassium 5.0 3.5-5.3 mmol/L Chloride 96 97-108 mmol/L CO2 33 22-32 mmol/L Glucose 165 65-99 mg/dL BUN 16 8-23 mg/dL Creatinine 0.82 0.70-1.30 mg/dL Calcium 9.3 8.6-10.4 mg/dL eGFR by Creatinine 93 >59 mL/min/1.73m2 Estimated Average Glucose Reviewed date:01/07/2025 12:37:14 PM Interpretation:192 Performing Lab: Notes/Report: Test performed by [facility] [address] [place] [address] , [address], [place] [address] Salinas Aguila MD, Rail Car Repairman CLIA: [id number] Estimated Average Glucose (eAG) 192 Estimated Average [...] % Glycohemoglobin A1c (in hous e) Reviewed date:05/23/2025 03:04:31 PM Interpretation: Performing Lab: Notes/Report: glycohemoglobin 8.3% 5 - 6.5 % P-Comprehensive Metabolic Pa mau (CMP) Reviewed date:05/26/2025 11:10:55 AM Interpretation:K 5.8, Chl 96, CO2 34, Glu 148 Performing Lab: Notes/Report: Test performed by [facility] [address] [place] [address] , [address], [place] [address] Elise Han MD, PhD, FCAP, Rail Car Repairman CLIA: [id number] Sodium 138 135-145 mmol/L Potassium 5.8 3.5-5.3 [...] 154 Performing Lab: Notes/Report: Test performed by [facility] [address] [place] [address] , [address], [place] [address] Elise Han MD, PhD, FCAP, Rail Car Repairman CLIA: [id number] Lipid Panel Footnote See Below *Based on optimal reference values. Please refer to the DOS for additional information regarding diagnostic lipid reference ranges, patient management based on the recently updated lipid guidelines ([employer] [employer] [employer] Task Force on Clinical Practice [...] Results: 42 Units: mg/dL % Change: +2% Glycohemoglobin A1c (in hous e) Reviewed date:08/31/2024 04:22:58 PM Interpretation:8.7% Performing Lab: Notes/Report: 8.7% glycohemoglobin 8.7% 5 - 6.5 % P-Comprehensive Metabolic Pa mau (CMP) Reviewed date:08/31/2024 04:22:58 PM Interpretation:gluc 202 Performing Lab: Notes/Report: Test performed by [facility] [address] [place] [address] , [address], [place] [address] Salinas Aguila MD, Rail Car Repairman CLIA: [id number] Sodium 139 135-145 mmol/L Potassium 4.7 3.5-5.3 [...] date:09/08/2024 04:45:51 PM Interpretation: Performing Lab: Notes/Report: Reason For Referral Diagnosis 1 Abnormal EKG (R94.31 ) Referral Organization [facility] Referring Provider First Name Mishel De La Cruz Referring Provider Last Name Jorge Luis Referring Provider Speciality [facility] ctice Referred Provider Specialty Cardiovascul ar Disease General Notes Jud Rodgers 2024 08:46:32 AM > fax[facility] to [facility] CardiologyAna Maria Brynn 09/17/2024 03:07:05 PM > 09/28/2024 at 09:15am Referral Priority Routine Medications Medication SIG (Take, Route, Frequency, Duration) Notes Start Date End Date Status Multivitamin 3 TIMES A WEEK No t-Taking Triamcinolone Acetonide 0.1 % 1 application Externally Twice a day 12/22/2023 Active Albuterol Sulfate HFA 108 (90 Base) MCG/ACT use 2 inhalations four times daily as needed; Duration: 17 Active Soliqua 100-33 UNT-MCG/ML 32 units Subcu taneous daily 02/07/2025 Active Tamsulosin HCl 0.4 mg take 1 capsule ora lly once a day; Duration: 30 Active traZODone HCl 50 mg take 1 tablet orally once a day; Duration: 30 Active Plavix 75 MG 1 tablet Orally Once a day Active Spironolactone 25 mg take 1 tablet orall y once a day; Duration: 30 Active PreserVision AREDS 2 - as directed Orall y twice a day Active metFORMIN HCl ER 500 mg take 2 tablets o rally twice a day; Duration: 30 Active Herminia Allergy 60 MG 1 tab(s) orally 2 times a day Active Simvastatin 20 mg take 1 tablet at bedtime orally once a day; Duration: 30 Active Furosemide 40 MG 1 tab(s) orally once a day; Duration: 30 Active Lisinopril-hydroCHLOROthi azide 10-12.5 MG take 1 tablet Orally Once a day; Duration: 30 Active Carvedilol 3.125 MG 1 tab(s) orally 2 ti mes a day; Duration: 30 days Active Glimepiride 4 mg take 1 tablet orally once a day; Duration: 30 Active Efudex 5 % 1 application Externally once daily 12/22/2023 Active Immunizations Vaccine Route Administration Date [...] Problem Type II diabetes mellitus without complication (458272007) Type 2 diabetes mellitus without complications (E11.9) Active confirmed Problem Essential hypertension (03047443) Essential hypertension (I10) Active confirmed Problem Actinic keratosis (558810) Actinic keratosis (L57.0) Active confirmed Problem Localized edema (2589067) Localized edema (R60.0) Active confirmed Problem Mixed hyperlipidemia (550810502) Mixed hyperlipidemia (E78.2) Active confirmed Problem Primary insomnia (6337008) Primary insomnia (F51.01) Active confirmed Problem Hypertensive heart failure (22170380) Hypertensive heart disease with heart failure (I11.0) Active confirmed Problem Ischemic cardiomyopathy (516679944) Ischemic cardiomyopathy (I25.5) Active confirmed Problem Must strain to pass urine (344364240) Straining to void (R39.16) Active confirmed Problem Long-term current use of insulin (174491637) halfway (current) use of insulin (Z79.4) Active confirmed Problem Body mass index 40+ - morbidly obese (989755110) BMI 40.0-44.9, adult (Z68.41) Active confirmed Problem Lower urinary tract symptoms due to benign prostatic hypertrophy (24164268572950) Benign prostatic hyperplasia with lower urinary tract symptoms (N40.1) Active confirmed Problem Peripheral venous insufficiency (08378751) Venous stasis dermatitis of right lower extremity (I87.2) Active confirmed Problem Heart failure (47456185) Heart failure, unspecified HF chronicity, unspecified heart failure type (I50.9) Active confirmed Problem Type 2 diabetes mellitus with other specified complication, unspecified whether halfway insulin use (E11.69) Active confirmed Problem 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 (613756137564363) 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 (C44.602) Active confirmed Vital Signs Heart Rate 90 /min 05/20/2025 Blood pressure diastolic 72 mm Hg 05/20/2025 Height 65 in in 05/20/2025 Blood pressure systolic 132 mm Hg 05/20/2025 Weight 238.2 lbs 05/20/2025 BMI 39.63 kg/m2 05/20/2025 Encounters Encounter Location Date Provider Diagnosis [facility] [address] [id number] 08/27/2024 Mishel Kang Type 2 diabetes heriberto itus without complications E11.9 ; halfway (current) use of insulin Z79.4 ; Localized edema R60.0 ; Venous stasis dermatitis of right lower extremity I87.2 ; Essential hypertension I10 and Actinic keratosis L57.0 [facility] [address] [id number] 12/03/2024 Mishel Kang Type 2 diabetes heriberto itus without complications E11.9 ; Ischemic cardiomyopathy I25.5 ; Localized edema R60.0 ; Mixed hyperlipidemia E78.2 ; Type 2 diabetes mellitus with other specified complication, unspecified whether halfway insulin use E11.69 ; BMI 40.0-44.9, adult Z68.41 ; Hypertensive heart disease with heart failure I11.0 and Heart failure, unspecified HF chronicity, unspecified heart failure type I50.9 [facility] [address] [facility] [address] [place], [place] [id number] 02/07/2025 Mishel Kang Localized edema R60. 0 ; Type 2 diabetes mellitus with other specified complication, unspecified whether salvage determiner insulin use E11.69 ; termite exterminator (current) use of insulin Z79.4 and Heart failure, unspecified HF chronicity, unspecified heart failure type I50.9 [facility] [address] [facility] [address] [place], [place] [id number] 04/18/2025 Joel Bradley Peripheral edema R60 .0 and Cellulitis of lower extremity, unspecified laterality L03.119 [facility] [address] [facility] [address] [place], [place] [id number] 05/20/2025 Mishel Kang Essential hypertensi on I10 ; Benign prostatic hyperplasia with lower urinary tract symptoms N40.1 ; Localized edema R60.0 ; termite exterminator (current) use of insulin Z79.4 ; Type 2 diabetes mellitus with other specified complication, unspecified whether salvage determiner insulin use E11.69 ; Mixed hyperlipidemia E78.2 and Actinic keratosis L57.0 [facility] [address] [facility] [address] [place] [id number] 08/31/2024 Mishel Kang [facility] [address] [facility] [address] [place] [id number] 09/13/2024 Mishel Kang [facility] [address] [facility] [address] [place] [id number] 09/27/2024 Mishel Kang [facility] [address] [facility] [address] [place], [place] [id number] 12/06/2024 Mishel Kang [facility] [address] [place], [place] [id number] 01/07/2025 Mishel Kang [facility] [address] [facility] [address] [place] [id number] 01/17/2025 Mishel Kang [facility] [address] [place], [place] [id number] 02/28/2025 Mishel Kang Colon cancer screeni ng Z12.11 [facility] [address] [place], [place] [id number] 02/28/2025 Mishel Kang [facility] [address] [place], [place] [id number] 03/10/2025 Mishel Kang Type 2 diabetes heriberto itus with other specified complication, unspecified whether halfway insulin use E11.69 [facility] [address] [place], [place] [id number] 03/15/2025 Mishel Kang Type 2 diabetes heriberto itus with other specified complication, unspecified whether salvage determiner insulin use E11.69 [facility] [address] [place], [place] [id number] 04/15/2025 Mishel Kang [facility] [address] [place], [place] [id number] 04/19/2025 Joelbindu HernandezBradley [facility] [address] [place], [place] [id number] 04/25/2025 Joel Bradley [facility] [address] [place], [place] [id number] 05/02/2025 Mishel Kang [facility] [address] [place], [place] [id number] 05/26/2025 Mishel Kang Assessments Encounter Date Diagnosis (ICD Code) Assessment Notes Treatment Notes Treatment Clinical Notes Section Notes 08/27/2024 Type 2 diabetes mellitus without complications (ICD-10 - E11.9) 08/27/2024 halfway (current) use of insulin (ICD-10 - Z79.4) 12/03/2024 Type 2 diabetes mellitus without complications (ICD-10 - E11.9) 12/03/2024 Ischemic cardiomyopathy (ICD-10 - I25.5) He needs to get the heart cath. 40-45% EF on echo 02/07/2025 Localized edema (ICD-10 - R60.0) Extra dose of Furosemide recommended for today. 02/07/2025 Type 2 diabetes mellitus with other specified complication, unspecified whether salvage determiner insulin use (ICD-10 - E11.69) 02/28/2025 Colon cancer screening (ICD-10 - Z12.11) 03/10/2025 Type 2 diabetes mellitus with other specified complication, unspecified whether halfway insulin use (ICD-10 - E11.69) 03/15/2025 Type 2 diabetes mellitus with other specified complication, unspecified whether salvage determiner insulin use (ICD-10 - E11.69) 04/18/2025 Cellulitis of lower extremity, unspecified laterality (ICD-10 - L03.119) Patient seems to have a mixture of stasis dermatitis and cellulitis 04/18/2025 Peripheral edema (ICD-10 - R60.0) 05/20/2025 Essential hypertension (ICD-10 - I10) 05/20/2025 Benign prostatic hyperplasia with lower urinary tract symptoms (ICD-10 - N40.1) 05/20/2025 Localized edema (ICD-10 - R60.0) 02/07/2025 termite exterminator (current) use of insulin (ICD-10 - Z79.4) 12/03/2024 Localized edema (ICD-10 - R60.0) 08/27/2024 Localized edema (ICD-10 - R60.0) 08/27/2024 Venous stasis dermatitis of right lower extremity (ICD-10 - I87.2) 12/03/2024 Mixed hyperlipidemia (ICD-10 - E78.2) 02/07/2025 Heart failure, unspecified HF chronicity, unspecified heart failure type (ICD-10 - I50.9) 05/20/2025 termite exterminator (current) use of insulin (ICD-10 - Z79.4) 12/03/2024 Type 2 diabetes mellitus with other specified complication, unspecified whether halfway insulin use (ICD-10 - E11.69) 05/20/2025 Type 2 diabetes mellitus with other specified complication, unspecified whether salvage determiner insulin use (ICD-10 - E11.69) 08/27/2024 Essential hypertension (ICD-10 - I10) 08/27/2024 Actinic keratosis (ICD-10 - L57.0) 12/03/2024 BMI 40.0-44.9, adult (ICD-10 - Z68.41) 05/20/2025 Mixed hyperlipidemia (ICD-10 - E78.2) 05/20/2025 Actinic keratosis (ICD-10 - L57.0) 12/03/2024 Hypertensive heart disease with heart failure (ICD-10 - I11.0) 12/03/2024 Heart failure, unspecified HF chronicity, unspecified heart failure type (ICD-10 - I50.9) Plan Of Treatment Pending Test Test Name Order Date Cologuard 02/28/2025 Next Appt Details Provider Name:Mishel Reyes er, 08/19/2025 10:30:00 AM, [address], [address], [place], [place], [id number], Insurance Providers Payer Name Payer Address Payer Phone Subscriber Number Group Number Insured Name Patient Relationship to Insured Coverage Start Date Coverage End Date [employer] (MEDICAR E) [address] [address] [place] [address] [phone] [id number] Jose Rico Self - patient is the insured Medical (General) History Medical History History ICD Code Type 2 Diabetes Hypertension Benign Prostatic Hyperplasia Hyperlipidemia Surgical History Surgery Date(Month/Year) Tonsillectomy Right Irridectomy, Dr. Leon, [facility] eye 01/02/2024
--- NOTE | 2025-05-31 09:30 | CA_ITS ---
APPROVED REPORT EXAM: Limited 2D Echocardiogram Supervisor Poultry Processing: Carole Chen, RCS, RVS Ht: 5 ft 2 in Wt: 238lbs BSA: 2.06 BP: 139/76 mmHg Indications: HFrEF, CAD, EF 40-45% previous echo, DM, HTN, SOB Echo Enhancing Agent Comments: TDS: Extremely limited acoustic windows due to body habitus and patient intolerance to touch nor positioning-scanned seated upright. 2D Dimensions IVSd 0.95 cm LVEF (Visual) 59.20 % PWd 1.18 cm EF AP4 62.30 % LVDd 3.38 cm GL Strain -19.3 % LVDs 2.35 cm Left Atrium 4.43 cm M-Mode Dimensions LVDd 3.38 cm (3.5-5.7) Ao Diam 2.94 cm (2.0-3.7) LVDs 2.35 cm (3.5-5.7) IVSd 0.95 cm (0.6-1.1) PWd 1.18 cm (0.6-1.1) FS 30.50% LV Diastology E Decel Time 178 (160-240 msec) E/A Ratio 0.73 MED E' 6.5 (>= 7 cm/sec) MED A' 8.80 cm/s E'/MED E' Ratio 10.35 (<= 14) LAT E' 9.2 (>= 10 cm/sec) LAT A' 11.30 cm/s E/LAT E' Ratio 7.32 (<= 14) Mitral Valve MV E Max Rhett. 67.0 (40-130 cm/s) MV A Velocity 92.0 (40-130 cm/s) E/A Ratio 0.73 MV Decel. Time 178 (160-240 ms) Other Information Study Quality: Technically Difficult Conclusion This is a limited TTE to evaluate for LV systolic function. Limited windows were obtained. Technically difficult study. The left ventricle is normal in size. There is increased LV wall thickness. There is normal global LV systolic function. LVEF is 50-55%. Compared to prior TTE from 09/02/2024, the LV systolic function has improved. Electronically signed by : Brea Farfan MD 05/31/2025 13:07:08
== END 2025-05-31 23:59 | disposition home or self-care (01) ==
PROVIDERS: PCP Family Medicine; Visit Provider Nurse Practitioner
DX: I11.0 Hypertensive heart disease with heart failure (principal); I50.20 Unspecified systolic (congestive) heart failure; I25.10 Atherosclerotic heart disease of native coronary artery without angina pectoris; E11.9 Type 2 diabetes mellitus without complications
CPT/HCPCS: 93308